=== PATIENT | female | born 1990 | race Caucasian/White ===

== ENCOUNTER 2016-06-24 11:13 | Emergency (ER) | payer OTHER ==
[2016-06-24 11:19] VITALS: BP 125/72; PULSE 82; TEMP 98.2; BMI 24.0
--- NOTE | 2016-06-24 11:26 | PDOC ---
History of Present Illness - General Chief Complaint: Urinary Problem Stated Complaint: Urinary pain, R/O UTI Time Seen by Provider: 06/24/16 11:21 History Source: Patient Exam Limitations: No Limitations - History of Present Illness Initial Comments: 06/24/16 11:26 c/o low back pain, urinary urgency and frequency, with dysuria for 4 days. no vag discharge, LMP now. no fever, no chills or vomiting. Past History - Past Medical History Allergies/Adverse Reactions: Allergies Allergy/AdvReac Type Severity Reaction Status Date / Time amoxicillin [Amoxicillin] Allergy Severe Rash Verified 06/24/16 11:18 Penicillins Allergy Severe Rash Verified 06/24/16 11:18 ceftriaxone Allergy Mild Rash Verified 06/24/16 11:18 Home Medications: Ambulatory Orders Nitrofurantoin Monohyd/M-Cryst [Macrobid -] 100 mg PO BID #14 capsule 06/24/16 Phenazopyridine HCl [Pyridium] 200 mg PO TID PRN #6 tablet 06/24/16 Asthma: No Cancer: No Cardiac Disorders: No Diabetes: No GI Disorders: Yes (GERD) HTN: No Suicide Attempt (Hx): No Seizures: No Thyroid Disease: No - Surgical History Cholecystectomy: Yes - Reproductive History (#): 1 Para: 0 Therapeutic (s) & number: No Spontaneous : 0 - Immunization History Immunization Up to Date: Yes - Psycho/Social/Smoking Cessation Hx Anxiety: No Suicidal Ideation: No Smoking Status: No Smoking History: Never smoked Have you smoked in the past 12 months: No Number of Cigarettes Smoked Daily: 0 Information on smoking cessation initiated: No Hx Alcohol Use: No Drug/Substance Use Hx: No Substance Use Type: None Hx Substance Use Treatment: No Abd/GI Specific PMHX - Complaint Specific PMHX Colitis: No Diverticulitis: No Gall Bladder Disease: No GERD: No Hepatitis: No Irritable Bowel Synd (IBS): No Pancreatitis: No GI Ulcer Disease: No *Physical Exam - Vital Signs Last Vital Signs Temp Pulse Resp BP Pulse Ox 98.2 F 82 18 125/72 100 06/24/16 11:16 06/24/16 11:16 06/24/16 11:16 06/24/16 11:16 06/24/16 11:16 - Physical Exam General Appearance: Yes: Nourished, Appropriately Dressed HEENT: positive: EOMI, MARYANNE, Normal ENT Inspection, TMs Normal, Pharynx Normal Neck: positive: Supple Respiratory/Chest: positive: Lungs Clear, Normal Breath Sounds Cardiovascular: positive: Regular Rhythm, Regular Rate Gastrointestinal/Abdominal: positive: Normal Bowel Sounds, Soft. negative: Tender Musculoskeletal: positive: Normal Inspection. 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 NML intact, Fully Oriented, Alert, Normal Mood/ Affect, Normal Response, Motor Strength 08/11 Medical Decision Making - Medical Decision Making 06/24/16 12:41 cc: urinary urgency, frequency will r/o UTI *DC/Admit/Observation/Transfer Diagnosis at time of Disposition: Urinary tract infection Qualifiers: Urinary tract infection type: acute cystitis Hematuria presence: with hematuria Qualified Code(s): N30.01 - Acute cystitis with hematuria - Discharge Dispostion Disposition: HOME Condition at time of disposition: Good - Prescriptions Prescriptions: Nitrofurantoin Monohyd/M-Cryst [Macrobid -] 100 mg PO BID #14 capsule Phenazopyridine HCl [Pyridium] 200 mg PO TID PRN #6 tablet PRN Reason: urinary pain - Patient Instructions Additional Instructions: drink at least 2 liters of water a day always empty your bladder before and after sexual intercourse take the prescribed antibiotic for 7 days take pyridium as directed for pain
[2016-06-24 12:10] LABS: URINE APPEARANCE SLCLOUDY; URINE BILIRUBIN NEGATIVE (NEGATIVE); URINE COLOR YELLOW; URINE GLUCOSE (UA) NEGATIVE (NEGATIVE); URINE KETONE NEGATIVE (NEGATIVE); URINE NITRITE NEGATIVE (NEGATIVE); URINE UROBILINOGEN NEGATIVE E.U./dl (0.2-1.0)
[2016-06-24 12:12] LABS: URINE BLOOD 3+ (NEGATIVE); URINE LEUK ESTERASE 2+ (NEGATIVE); URINE PROTEIN 1+ (NEGATIVE)
[2016-06-24 12:14] LABS: URINE BACTERIA RARE /hpf (NONE SEEN); URINE MUCUS FEW; URINE RBC 241 /hpf (0-3); URINE WBC 227 /hpf (3-5)
== END 2016-06-24 12:49 | disposition home or self-care (01) ==
LOC: JERFT 11:13
DX: N30.01 Acute cystitis with hematuria (principal)
CPT/HCPCS: 36415; 81003; 81015; 84703; 87086; 87186; 87491; 87591; 99281-25

== ENCOUNTER 2016-07-07 09:23 | Emergency (ER) | payer OTHER ==
[2016-07-07 09:33] VITALS: BP 128/82; PULSE 96; TEMP 98.1; BMI 24.6
--- NOTE | 2016-07-07 09:55 | PDOC ---
History of Present Illness - General Chief Complaint: Migraine Headache Stated Complaint: HEADACHES Time Seen by Provider: 07/07/16 09:35 History Source: Patient Exam Limitations: No Limitations - History of Present Illness Initial Comments: CHIEF COMPLAINT: 25 y/o afebrile female with PMH migraines (diagnosed by Dr. Escobar? - neurologist - after extensive testing) c/o headache since yesterday. HISTORY OF PRESENT ILLNESS: She states her headache is temporal and occipital. She states this feels just like her previous migraines. She admits she was prescribed Imitrex about 1 year ago and hasn't had a migraine since. She no longer has the prescription and hasn't seen her neurologist in 1 year. She admits she is currently sensitive to light and tried taking PO medications last night but vomited them up. She denies f/c, neck pain, changes in vision/ hearing, CP, SOB, abd pain. Vital signs on arrival are notable for pulse of 96. REVIEW OF SYSTEMS: GENERAL/CONSTITUTIONAL: No fever/chills. No weakness. No weight change. HEAD, EYES, EARS, NOSE AND THROAT: No change in vision. No ear pain or discharge. No sore throat. CARDIOVASCULAR: No chest pain or shortness of breath. RESPIRATORY: No cough, wheezing, or hemoptysis. GASTROINTESTINAL: +nausea. No diarrhea, constipation, abd pain. GENITOURINARY: No dysuria, frequency, or change in urination. MUSCULOSKELETAL: No joint or muscle swelling or pain. No neck or back pain. SKIN: No rash or easy bruising. NEUROLOGIC: +headache and photophobia. No vertigo, loss of consciousness, or loss of sensation. PHYSICAL EXAM: GENERAL: The patient is awake, alert, and fully oriented, in no acute distress but uncomfortable appearing. She is sitting in the room with the lights off. HEAD: Normal with no signs of trauma. ENT: Pupils equal, round and reactive to light, extraocular movements intact, sclera anicteric, conjunctiva clear. Neck supple. Photophobia. LUNGS: Clear to auscultation bilaterally. Normal excursion. No respiratory distress or use of accessory muscles. CV: RRR, S1/S2, no MRG. Cap refill < 2 sec. ABDOMEN: Soft, non-distended, non-tender even to deep palpation, no hepatomegaly or splenomegaly, no masses. EXTREMITIES: Normal range of motion, no edema. NEUROLOGICAL: Normal speech, normal gait. CN II-XII grossly intact. PSYCH: Normal mood, normal affect. SKIN: Warm, dry, normal turgor, no rashes or lesions noted. Past History - Past Medical History Allergies/Adverse Reactions: Allergies Allergy/AdvReac Type Severity Reaction Status Date / Time amoxicillin [Amoxicillin] Allergy Severe Rash Verified 07/07/16 09:30 Penicillins Allergy Severe Rash Verified 07/07/16 09:30 ceftriaxone Allergy Mild Rash Verified 07/07/16 09:30 Home Medications: Ambulatory Orders Acetaminophen/Caffeine/Butalb [Fioricet -] 1 tab PO Q4H #20 tablet MDD 6 Asthma: No Cancer: No Cardiac Disorders: No Diabetes: No GI Disorders: Yes (GERD) HTN: No Suicide Attempt (Hx): No Seizures: No Thyroid Disease: No Other medical history: MIGRANES - Surgical History Cholecystectomy: Yes - Reproductive History (#): 1 Para: 0 Therapeutic (s) & number: No Spontaneous : 0 - Immunization History Immunization Up to Date: Yes - Psycho/Social/Smoking Cessation Hx Anxiety: No Suicidal Ideation: No Smoking Status: No Smoking History: Never smoked Have you smoked in the past 12 months: No Number of Cigarettes Smoked Daily: 0 Hx Alcohol Use: No Drug/Substance Use Hx: No Substance Use Type: None Hx Substance Use Treatment: No *Physical Exam - Vital Signs Last Vital Signs Temp Pulse Resp BP Pulse Ox 98.1 F 96 H 17 128/82 95 07/07/16 09:30 07/07/16 09:30 07/07/16 09:30 07/07/16 09:30 07/07/16 09:30 Medical Decision Making - Medical Decision Making A/P: 25 y/o female with hx of migraines here with a migraine headache. Plan is as follows: 1. hcg hcg - negative 2. Iv toradol 3. Iv decadron 4. IV reglan 5. PO Fioricet 6. IV fluids The patient states she feels much better with her migraine down to a 4/10, from a 10/10. She has a f/u appointment with her neurologist on Sunday. Called out an Rx for Fioricet because it would not transmit electronically. Instructed the patient to take motrin as well every 6 hours and drink plenty of fluids. Instructed her to return to the ER with any worsening or concerning symptoms. The patient verbalizes understanding of all instructions, has no further questions and is awaiting discharge. *DC/Admit/Observation/Transfer Diagnosis at time of Disposition: Migraine Qualifiers: Migraine type: unspecified Status migrainosus presence: without status migrainosus Intractability: not intractable Qualified Code(s): G43.909 - Migraine, unspecified, not intractable, without status migrainosus - Discharge Dispostion Disposition: HOME Condition at time of disposition: Improved - Prescriptions Prescriptions: Acetaminophen/Caffeine/Butalb [Fioricet -] 1 tab PO Q4H #20 tablet MDD 6 - Referrals Referrals: Ara Whitney [Primary Care Provider] - Debi Escobar MD [Staff Physician] - (Keep appointment scheduled for Sunday) - Patient Instructions Printed Discharge Instructions: DI for Migraine Additional Instructions: Discharge Instructions: -A prescription was called out to your pharmacy for migraine medication -please also take 600mg of over the counter motrin every 6 hours with the migraine medication -Keep your appointment with your neurologist scheduled for Sunday07/10/16. -Return to the ER with any worsening or concerning symptoms
[2016-07-07] MEDS ORDERED: DEXAMETHASONE SOD PHOSPHATE 10 MG/1 ML VIAL IVPUSH ONE (10:49)
[2016-07-07] MEDS ORDERED: KETOROLAC TROMETHAMINE 30 MG/1 ML VIAL IVPUSH ONE (10:49)
[2016-07-07] MEDS ORDERED: SODIUM CHLORIDE 1,000 ML IV STA (10:49)
[2016-07-07] MEDS ORDERED: METOCLOPRAMIDE HCL INJECTION 10 MG/2 ML VIAL IVPB ONE (10:49)
[2016-07-07] MEDS ORDERED: DEXAMETHASONE SOD PHOSPHATE 10 MG/1 ML VIAL ONE (10:59)
[2016-07-07] MEDS ORDERED: METOCLOPRAMIDE HCL INJECTION 10 MG/2 ML VIAL ONE (10:59)
[2016-07-07] MEDS ORDERED: KETOROLAC TROMETHAMINE 30 MG/1 ML VIAL ONE (11:00)
[2016-07-07] MEDS ORDERED: ACETAMINOPHEN/CAFFEINE/BUTALBITAL 1 TAB PO ONE (12:25)
[2016-07-07] MEDS ORDERED: ACETAMINOPHEN/CAFFEINE/BUTALBITAL 1 TAB ONE (12:27)
== END 2016-07-07 13:04 | disposition home or self-care (01) ==
LOC: JERFT 09:23
PROC: 3E033GC Introduction of Other Therapeutic Substance into Peripheral Vein, Percutaneous Approach (ICD-10-PCS; principal; 2016-07-07)
PROC: 3E0333Z Introduction of Anti-inflammatory into Peripheral Vein, Percutaneous Approach (ICD-10-PCS; 2016-07-07)
PROC: 3E0337Z Introduction of Electrolytic and Water Balance Substance into Peripheral Vein, Percutaneous Approach (ICD-10-PCS; 2016-07-07)
DX: G43.909 Migraine, unspecified, not intractable, without status migrainosus (principal)
CPT/HCPCS: 84703; 96361; 96374; 96375; 99281-25

== ENCOUNTER 2016-09-13 05:19 | Day surgery (SDC) | payer OTHER ==
[2016-09-12 09:18] VITALS: BMI 24.0
[2016-09-13] MEDS ORDERED: MIDAZOLAM HCL 2 MG/2 ML SINGLE DOSE VIAL ONE ×2 (14:04→14:05)
--- NOTE | 2016-09-13 14:31 | HP ---
Past Medical History - Primary Care Physician PCP:: Perfecto Calhoun - Admission Chief Complaint: 26yo P2 with at EGA 12w4d with anomalies admitted for termination History of Present Illness: US showed cystic Hygroma and VSD/AVSD History Source: Patient, Medical Record Limitations to Obtaining History: No Limitations - Past Medical History SHREDDER TENDER: No: Alzheimer's, CVA, Dementia, Migraine, Multiple Sclerosis, Peripheral Neuropathy, Parkinson's, Seizure, Syncope, TIA, Vertigo, Other Cardiovascular: No: AFIB, Aneurysm, Aortic Insufficiency, Aortic Stenosis, CAD, CHF, Deep Vein Thrombosis, HTN, Hyperlipdemia, ID, Mitral Insufficiency, Mitral Stenosis, Murmur, Pulmonary Hypertension, Other Pulmonary: No: Asthma, Bronchitis, Cancer, COPD, O2 Dependent, Pneumonia, Previously Intubated, Pulmonary Embolus, Pulmonary Fibrosis, Sleep Apnea, Other Gastrointestinal: No: Ascites, Cancer, Constipation, Crohn's Disease, Diverticulitis, Diverticulosis, Esophageal Varices, Gastritis, GERD, GI Bleed, Hemorrhoids, Hiatal Hernia, Inflamatory Bowel Disease, Irritable Bowel Disease, Pancreatitis, Peptic Ulcer Disease, Ulcerative Colitis, Other Hepatobiliary: No: Cirrhosis, Cholelithiasis, Cholecystitis, Choledocholithiasis , Hepatitis A, Hepatitis B, Hepatitis C, Other Renal/: No: Renal Failure, Renal Inusuff, BPH, Cancer, Hematuria, Hemodialysis , Neurogenic Bladder, Renal Calculi, UTI, Other Reproductive: No: Ectopic , Endometriosis, Fibroids, PID, Polycystic Ovary Syndrome, Postmenopausal, Other ...: 3 ...Para: 2 ... Weeks Gestation by Dates: 12.4 Heme/Onc: No: Anemia, B12 Deficiency, Bleeding Disorder, Cancer, Current Chemotherapy, Current Radiation Therapy, Hemochromatosis, Hypercoaguable State, Myeloproliferative Synd, Sickle Cell Disease, Sickle Cell Trait, Thrombocytopenia, Other Infectious Disease: No: AIDS, C-Diff, Herpes Zoster, HIV, MRSA, STD's, Tuberculosis, VREF, Other Psych: No: Addictions, Anxiety, Bipolar, Depression, Panic, Psychosis, Schizophrenia, Other Musculoskeletal: No: Bursitis, Chronic low back pain, Hemiparesis, Hemiplegia, Osteoarthritis, Paraplegia, Other Rheumatology: No: Fibromyalgia, Gout, Lupus, Rheumatoid Arthritis, Sarcoidosis, Vasculitis, Other ENT: No: Allergic Rhinitis, Sinusitis, Other Endocrine: No: [place]'s Disease, Solitario's Disease, Diabetes Insipidus, Diabetes Mellitus, Hyperparathyroidism, Hyperthyroidism, Hypothyroidism, Osteopenia, SIADH, Other Dermatology: No: Basal Cell, Cellulitis, Eczema, Melanoma, Psoriasis, Squamous Cell, Other - Past Surgical History Past Surgical History: Yes: Cholecystectomy Hx Myomectomy: No Hx Transabdominal Cerclage: No - Smoking History Smoking history: Never smoked Have you smoked in the past 12 months: No Aproximately how many cigarettes per day: 0 - Alcohol/Substance Use Hx Alcohol Use: No - Social History Usual Living Arrangement: Yes: With Child ADL: Independent History of Recent Travel: No Home Medications - Allergies Allergies/Adverse Reactions: Allergies Allergy/AdvReac Type Severity Reaction Status Date / Time amoxicillin [Amoxicillin] Allergy Severe Rash Verified 09/12/16 09:18 Penicillins Allergy Severe Rash Verified 09/12/16 09:18 ceftriaxone Allergy Mild Rash Verified 09/12/16 09:18 aspirin AdvReac Intermediate Verified 09/12/16 09:19 - Home Medications Home Medications: Ambulatory Orders Acetaminophen/Caffeine/Butalb [Fioricet -] 1 tab PO Q4H #20 tablet MDD 6 Family Disease History - Family Disease History Family History: Denies Review of Systems - Review of Systems Constitutional: reports: No Symptoms Eyes: reports: No Symptoms HENT: reports: No Symptoms Neck: reports: No Symptoms Cardiovascular: reports: No Symptoms Respiratory: reports: No Symptoms Gastrointestinal: reports: No Symptoms Genitourinary: reports: No Symptoms Breasts: reports: No Symptoms Reported Musculoskeletal: reports: No Symptoms Integumentary: reports: No Symptoms Neurological: reports: No Symptoms Endocrine: reports: No Symptoms Hematology/Lymphatic: reports: No Symptoms Psychiatric: reports: No Symptoms Pain Intensity: 0 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 Vital Signs: Vital Signs Temperature 97.8 F 09/13/16 12:41 Pulse Rate 76 09/13/16 12:41 Respiratory Rate 18 09/13/16 12:41 Blood Pressure 110/61 09/13/16 12:41 O2 Sat by Pulse Oximetry (%) 99 09/13/16 12:53 Constitutional: Yes: Well Nourished, No Distress, Calm Eyes: Yes: WNL, Conjunctiva Clear HENT: Yes: WNL, Atraumatic, Normocephalic Neck: Yes: WNL, Supple, Trachea Midline Cardiovascular: Yes: WNL, Regular Rate and Rhythm Respiratory: Yes: WNL, Regular, CTA Bilaterally Gastrointestinal: Yes: WNL, Normal Bowel Sounds, Soft ...Rectal Exam: Yes: WNL Renal/: Yes: WNL Pelvis: Yes: WNL External Genitalia: Yes: Normal Internal Exam Deferred: No Vaginal Exam: Yes: Normal Cervix: Yes: Normal Uterus: Yes: Normal Adnexa: Normal: Left, Right Musculoskeletal: Yes: WNL Extremities: Yes: WNL Integumentary: Yes: WNL Neurological: Yes: WNL, Alert, Oriented ...Motor Strength: WNL Psychiatric: Yes: WNL, Alert, Oriented Imaging - Results Ultrasound: Report Reviewed Assessment/Plan 26yo P2 with at EGA 12w4d with anomalies admitted for termination. Risks, benefits, alternatives of surgery were discussed. Risks of infx, bleeding, scarring, infertility, amenorrhea, perforation, retained POC, etc explained. Pt verbalized her understanding and requested to proceed with surgery
[2016-09-13] MEDS ORDERED: DEXAMETHASONE SOD PHOSPHATE 4 MG/1 ML VIAL ONE (14:34)
[2016-09-13] MEDS ORDERED: CLINDAMYCIN PHOSPHATE 600 MG/4 ML VIAL IVPB ONE (14:41)
--- NOTE | 2016-09-13 15:34 | OP ---
Operative Note - Note: Operative Date: 09/13/16 Pre-Operative Diagnosis: at EGA 12w4d, anomalies, elective termination Operation: US guided Suction, D&C Findings: Anteverted uterus, SIUP, anomaies also confirmed on intraoperative US. No RPOC at end of procedure. Post-Operative Diagnosis: Same as Pre-op Surgeon: Perfecto Calhoun Anesthesiologist/SALES SUPPORT COORDINATOR: Dominic Raphael Anesthesia: General Specimens Removed: POC Estimated Blood Loss (mls): 200 Drains, Volume Out (mls): 0 Blood Volume Replaced (mls): 0 Fluid Volume Replaced (mls): 600 Operative Report Dictated: Yes
[2016-09-13] MEDS ORDERED: ONDANSETRON 4 MG/2 ML VIAL IVPUSH PRN (15:49)
[2016-09-13] MEDS ORDERED: oxyCODONE HCL 5 MG TABLET PO PRN (15:49)
[2016-09-13] MEDS ORDERED: PROMETHAZINE HCL 25 MG/1 ML VIAL IVPUSH PRN (15:49)
[2016-09-13] MEDS ORDERED: KETOROLAC TROMETHAMINE 30 MG/1 ML VIAL IVPUSH ONE (15:49)
[2016-09-13] MEDS ORDERED: LACTATED RINGERS SOLUTION 1,000 ML IV SCH (16:00)
[2016-09-13 16:47] VITALS: TEMP 98.1
[2016-09-13 18:09] VITALS: BP 121/70; PULSE 70
--- NOTE | 2016-09-14 16:09 | PATH ---
Surgical Pathology Report Patient Name: FABIO SARGENT Med. Rec. #: [id number] /Age/Gender: 1990 (Age: 26) / F Account: [id number] Location: [facility] SURGICAL Taken: 09/13/2016 Received: 09/13/2016 Reported: 09/14/2016 Physicians: Perfecto Calhoun M.D. Specimen(s) Received PRODUCTS OF CONCEPTION Clinical History anomalies 12.4 weeks gestation Final Diagnosis PRODUCTS OF CONCEPTION: SOMATIC TISSUE IDENTIFIED. CHORIONIC VILLUS TISSUE PRESENT. FRAGMENTS OF DECIDUA. Comment: Chromosomal studies and microarray studies are pending; results will be reported in an addendum. Electronically Signed Jason Patel M.D. Gross Description Received fresh labeled "products of conception chromosomal studies with microarray" is a 9.5 x 7.0 x 0.9 cm aggregate of sesay-pink soft tissue fragments. Villous tissue and somatic tissue is identified. A territory service representative portion is placed into RPMI solution and sent for chromosomal analysis and microarray studies. Additional territory service representative sections are submitted in 2 cassettes as follows: 1-villous tissue; 2- somatic tissue. /09/13/2016 saudi09/13/2016
--- NOTE | 2016-09-14 18:26 | OP ---
DATE OF OPERATION: 09/13/2016 PREOPERATIVE DIAGNOSIS: with estimated gestational age of 12 weeks 4 days, anomalies with cystic hygroma, ventricular septal defect, elective termination of . POSTOPERATIVE DIAGNOSIS: with estimated gestational age of 12 weeks 4 days, anomalies with cystic hygroma, ventricular septal defect, elective termination of . PROCEDURE: Ultrasound-guided suction dilation and curettage. SURGEON: Perfecto Calhoun MD MOLDING AND TRIM INSTALLER: None. ANESTHESIOLOGIST: Dominic Raphael MD ANESTHESIA: General. COMPLICATIONS: None. ESTIMATED BLOOD LOSS: 200 mL. INTRAVENOUS FLUIDS: 600 mL of crystalloid. PATHOLOGY: Products of conception. tissue sent for chromosomal analysis with micro array. FINDINGS: Examination under anesthesia revealed an anteverted uterus consistent with 12 weeks' gestation. No pelvic or adnexal masses. Suction dilation and curettage performed under real-time ultrasound guidance without complications. No retained products of conception at the end of the procedure. DESCRIPTION OF PROCEDURE: The patient was met preoperatively. Risks, benefits, and alternatives of surgery were discussed in detail. All questions were answered. The patient was then brought to the OR with the IV running. The patient was placed in a supine position. The general anesthesia was achieved without difficulty. The patient was then positioned in a dorsal lithotomy position using adjustable Efrain stirrups. The patient was examined under anesthesia with the findings as described above. She was prepped and draped in the usual sterile fashion. A timeout procedure was conducted per a standard protocol. A sterile speculum was introduced inside the vagina with good visualization of the cervix. The cervix was dilated to accommodate size12 curette. The suction curettage procedure was performed under real-time direct ultrasound guidance without complications. No retained products of conception were noted once the products of conception were evacuated from the uterus. A gentle sharp curettage was performed to assure no retained tissue. Once that was completed, all of the instruments were removed from the patient. Good hemostasis was confirmed. Sponge, lap, instrument counts were correct. The patient was transferred to the recovery room, awake, and in stable condition. Fany [id number]
== END 2016-09-13 17:55 | disposition home or self-care (01) ==
LOC: JASU-SURG 05:19
PROVIDERS: ATTEND Obstetrics & Gynecology
PROC: 10A07ZZ Abortion of Products of Conception, Via Natural or Artificial Opening (ICD-10-PCS; principal; 2016-09-13 14:00)
DX: Z33.2 Encounter for elective termination of pregnancy (principal); Z3A.12 12 weeks gestation of pregnancy
CPT/HCPCS: 76998-TC; 88305-TC; 94760

== ENCOUNTER 2016-10-04 20:50 | Emergency (ER) | payer OTHER ==
[2016-10-04 20:55] VITALS: BP 101/74; PULSE 80; TEMP 97.9; BMI 22.6
--- NOTE | 2016-10-04 21:08 | PDOC ---
History of Present Illness - General Chief Complaint: Migraine Headache Stated Complaint: MIGRAINE EHAD AHCE Time Seen by Provider: 10/04/16 20:51 - History of Present Illness Initial Comments: This 26-year-old woman with a history of migraine headache in the past, presents with 1 week of her usual right-sided migraine headache with 2 days of nausea and vomiting. She also has had photophobia/sensitivity to loud noises as she has in the past with her migraines. Current episode is typical of her usual migraine episodes Her neurologist, Dr. Escobar had prescribed a new medication because the patient had sensation of throat closing with other prescribed medications (patient believes the name of the medications are naratriptan and naproxen). Unfortunately, the patient is still awaiting insurance approval of the new medication. Although the patient has had Toradol in the ER as recently as June of this year without ALLERGIC reaction, she believes the throat closing sensation occurred after this. Past History - Past Medical History Allergies/Adverse Reactions: Allergies Allergy/AdvReac Type Severity Reaction Status Date / Time amoxicillin [Amoxicillin] Allergy Severe Rash Verified 10/04/16 20:51 Penicillins Allergy Severe Rash Verified 10/04/16 20:51 ceftriaxone Allergy Mild Rash Verified 10/04/16 20:51 aspirin AdvReac Intermediate Verified 10/04/16 20:51 Home Medications: Ambulatory Orders NK [No Known Home Medication] 10/04/16 Anemia: No Asthma: No Cancer: No Cardiac Disorders: No CVA: No COPD: No CHF: No Dementia: No Diabetes: No GI Disorders: Yes (GERD) Disorders: No HTN: No Hypercholesterolemia: No Liver Disease: No Suicide Attempt (Hx): No Seizures: No Thyroid Disease: No Other medical history: MIGRAINES - Surgical History Cholecystectomy: Yes - Reproductive History (#): 1 Para: 0 Therapeutic (s) & number: No Spontaneous : 0 - Immunization History Immunization Up to Date: Yes - Psycho/Social/Smoking Cessation Hx Anxiety: No Suicidal Ideation: No Smoking Status: No Smoking History: Never smoked Have you smoked in the past 12 months: No Number of Cigarettes Smoked Daily: 0 Information on smoking cessation initiated: No Hx Alcohol Use: No Drug/Substance Use Hx: No Substance Use Type: None Hx Substance Use Treatment: No Review of Systems - Review of Systems Able to Perform ROS?: Yes Comments:: 12 point review of systems is negative except for what is noted in the history of present illness *Physical Exam - Vital Signs Last Vital Signs Temp Pulse Resp BP Pulse Ox 97.9 F 80 18 101/74 98 10/04/16 20:51 10/04/16 20:51 10/04/16 20:51 10/04/16 20:51 10/04/16 20:51 - Physical Exam Comments: GENERAL: Young adult female, in moderate distress secondary to right-sided migraine headache HEAD: Normal with no signs of trauma. EYES: PERRLA, EOMI, sclera anicteric, conjunctiva clear. ENT: Ears normal, nares patent, oropharynx clear without exudates. Dry mucous membranes. NECK: Normal range of motion, supple without lymphadenopathy, JVD, or masses. LUNGS: Breath sounds equal, clear to auscultation bilaterally. No wheezes, and no crackles. HEART:Regular rate and rhythm, normal S1 and S2 without murmur, rub or gallop. ABDOMEN:.normal bowel sounds No guarding,tenderness or rebound.No masses No distention. EXTREMITIES: Normal range of motion, no edema. No clubbing or cyanosis. No erythema, or tenderness. NEUROLOGICAL: Cranial nerves II through XII grossly intact. Normal speech. No focal neurological deficits. MUSCULOSKELETAL: Back non-tender to palpation, no CVA tenderness SKIN: Warm, Dry, normal turgor, no rashes or lesions noted. Progress Note - Progress Note Progress Note: This 26-year-old woman with a history of chronic migraine presents with episode of usual symptoms for the last week, complicated by nausea and vomiting over the last 48 hours. On exam, the patient has dry mucous membranes, but there is no evidence of acute neuro deficits or other new findings on exam. Of note in recent history, is development of "throat closing" symptoms after medications introduce by Dr. Escobar. Patient believes that one of the medications was naproxen. Because of this, NSAIDs will be avoided and Toradol will not be used now (patient had good results in previous ER visits with use of IV Toradol for migraine episodes) Metoclopramide/diphenhydramine IV combination will be administered Medical Decision Making - Medical Decision Making 10/04/16 23:53 Patient feels markedly improved after 1 L normal saline and 4 mg IV Zofran. This was followed by 10 mg Reglan IV and Benadryl 25 mg IV. Patient has follow-up appointment scheduled with Dr. Escobar tomorrow. *DC/Admit/Observation/Transfer Diagnosis at time of Disposition: Migraine Qualifiers: Migraine type: without aura Status migrainosus presence: without status migrainosus Intractability: not intractable Qualified Code(s): G43.009 - Migraine without aura, not intractable, without status migrainosus - Discharge Dispostion Disposition: HOME Condition at time of disposition: Stable - Referrals Referrals: Debi Escobar MD [Staff Physician] - - Patient Instructions Printed Discharge Instructions: Migraine -- Adult Additional Instructions: followup with Dr Escobar tomorrow as scheduled Return to ER as needed
[2016-10-04] MEDS ORDERED: ONDANSETRON 4 MG/2 ML VIAL IVPUSH ONE (22:23)
[2016-10-04] MEDS ORDERED: SODIUM CHLORIDE 1,000 ML IV STA (22:23)
[2016-10-04] MEDS ORDERED: ONDANSETRON 4 MG/2 ML VIAL ONE ×2 (22:27→22:31)
[2016-10-04] MEDS ORDERED: METOCLOPRAMIDE HCL INJECTION 10 MG/2 ML VIAL IVPB ONE (22:55)
== END 2016-10-04 23:59 | disposition home or self-care (01) ==
LOC: FER 20:50
PROC: 3E033GC Introduction of Other Therapeutic Substance into Peripheral Vein, Percutaneous Approach (ICD-10-PCS; principal; 2016-10-04)
PROC: 3E0337Z Introduction of Electrolytic and Water Balance Substance into Peripheral Vein, Percutaneous Approach (ICD-10-PCS; 2016-10-04)
DX: G43.009 Migraine without aura, not intractable, without status migrainosus (principal)
CPT/HCPCS: 84703; 96361; 96374; 96375; 99282-25

== ENCOUNTER 2017-01-06 08:24 | Emergency (ER) | payer OTHER ==
[2017-01-06 08:28] VITALS: BP 106/66; PULSE 81; TEMP 97.7; BMI 21.9
--- NOTE | 2017-01-06 08:37 | PDOC ---
History of Present Illness - General Chief Complaint: Urinary Problem Stated Complaint: PAIN ON URINATION Time Seen by Provider: 01/06/17 08:27 - History of Present Illness Initial Comments: 01/06/17 08:32 26-year-old female denies past medical presents with 3 days of dysuria and dull suprapubic pain with 1 day of radiation up to the right flank. Patient reports this feels like her previous UTIs. She denies any fevers or chills. Denies any nausea or vomiting. Denies vaginal discharge or bleeding. Feels well otherwise. Denies hx resistant UTIs. Denies chest pain, shortness of breath Denies focal weakness or numbness. Denies headaches Denies rashes. PMD: Dr. Ara Whitney Past History - Past Medical History Allergies/Adverse Reactions: Allergies Allergy/AdvReac Type Severity Reaction Status Date / Time amoxicillin [Amoxicillin] Allergy Severe Rash Verified 01/06/17 08:25 Penicillins Allergy Severe Rash Verified 01/06/17 08:25 ceftriaxone Allergy Mild Rash Verified 01/06/17 08:25 aspirin AdvReac Intermediate Verified 01/06/17 08:25 Home Medications: Ambulatory Orders Nitrofurantoin Monohyd/M-Cryst [Macrobid -] 100 mg PO BID #14 capsule 01/06/17 Phenazopyridine HCl [Pyridium] 200 mg PO TID PRN #6 tablet 01/06/17 Anemia: No Asthma: No Cancer: No Cardiac Disorders: No CVA: No COPD: No CHF: No Dementia: No Diabetes: No GI Disorders: Yes (GERD) Disorders: No HTN: No Hypercholesterolemia: No Liver Disease: No Seizures: No Thyroid Disease: No - Surgical History Cholecystectomy: Yes - Reproductive History (#): 1 Para: 0 Therapeutic (s) & number: No Spontaneous : 0 - Immunization History Immunization Up to Date: Yes - Suicide/Smoking/Psychosocial Hx Smoking Status: No Smoking History: Never smoked Have you smoked in the past 12 months: No Number of Cigarettes Smoked Daily: 0 Information on smoking cessation initiated: No Hx Alcohol Use: No Drug/Substance Use Hx: No Substance Use Type: None Hx Substance Use Treatment: No Abd/GI Specific PMHX - Complaint Specific PMHX Colitis: No Diverticulitis: No Gall Bladder Disease: No GERD: No Hepatitis: No Irritable Bowel Synd (IBS): No Pancreatitis: No GI Ulcer Disease: No Review of Systems - Review of Systems Comments:: 01/06/17 08:36 GENERAL/CONSTITUTIONAL: No fever or chills. No weakness. HEAD, EYES, EARS, NOSE AND THROAT: No change in vision. No ear pain or discharge. No sore throat. GASTROINTESTINAL: No nausea, vomiting, diarrhea or constipation. GENITOURINARY: +dysuria and frequency. +R flank pain CARDIOVASCULAR: No chest pain or shortness of breath. RESPIRATORY: No cough, wheezing, or hemoptysis. MUSCULOSKELETAL: No joint or muscle swelling or pain. No neck or back pain. SKIN: No rash NEUROLOGIC: No headache, vertigo, loss of consciousness, or change in strength/ sensation. ENDOCRINE: No increased thirst. No abnormal weight change. HEMATOLOGIC/LYMPHATIC: No anemia, easy bleeding, or history of blood clots. ALLERGIC/IMMUNOLOGIC: No hives or skin allergy. *Physical Exam - Vital Signs Last Vital Signs Temp Pulse Resp BP Pulse Ox 97.7 F 81 18 106/66 98 01/06/17 08:25 01/06/17 08:25 01/06/17 08:25 01/06/17 08:25 01/06/17 08:25 - Physical Exam Comments: 01/06/17 08:37 GENERAL: Awake, alert, and fully oriented, in no acute distress HEAD: No signs of trauma EYES: PERRLA, EOMI, sclera anicteric, conjunctiva clear ENT: Auricles normal inspection, hearing grossly normal, nares patent, oropharynx clear without exudates. Moist mucosa NECK: Normal ROM, supple, no lymphadenopathy, JVD, or masses LUNGS: Breath sounds equal, clear to auscultation bilaterally. No wheezes, and no crackles HEART: Regular rate and rhythm, normal S1 and S2, no murmurs, rubs or gallops ABDOMEN: Soft, +suprapubic ttp, normoactive bowel sounds. No guarding, no rebound. No masses. No CVAT EXTREMITIES: Normal range of motion, no edema. No clubbing or cyanosis. No cords, erythema, or tenderness NEUROLOGICAL: Normal speech, cranial nerves intact, negative pronator drift, 5/ 5 strength in all 4 extremities, normal sensation to light touch in all 4 extremities, normal cerebellar exam, normal gait, normal reflexes and tone SKIN: Warm, Dry, normal turgor, no rashes or lesions noted. Medical Decision Making - Medical Decision Making 01/06/17 08:38 26-year-old female with no significant past medical history presents with dysuria, suprapubic pain radiating up to the right flank. Vitals unremarkable. Exam remarkable only for suprapubic tenderness to palpation with no CVA tenderness. Likely UTI. Pyelo on differential as well, however pt with no CVAT and well appearing. Kidney stone also on differential but unlikely as pt reports mild, dull pain, mostly over suprapubic area. -UA -UPT -reassess 01/06/17 09:21 UA + for UTI. Will DC with macrobid and pyridium. I discussed the physical exam findings, ancillary test results and final diagnoses with the patient. I answered all of the patient's questions. The patient was satisfied with the care received and felt comfortable with the discharge plan and treatment plan. The patient will call their primary care physician within 24 hours to arrange follow-up and will return to the Emergency Department with any new, persistent or worsening symptoms. *DC/Admit/Observation/Transfer Diagnosis at time of Disposition: Urinary tract infection - Discharge Dispostion Disposition: HOME Condition at time of disposition: Stable Admit: No - Patient Instructions Printed Discharge Instructions: Urinary Tract Infection Additional Instructions: Please see Dr. Whitney within 1 week. Return to the emergency department immediately for any new or concerning symptoms or if your symptoms get worse. Thank you for coming to the Emergency Department today for your care. It was a pleasure to see you today. Please note that your evaluation is INCOMPLETE until you follow-up with your doctor. - Attestations Physician Attestion: 01/06/17 09:23 I, Dr. Snehal Ahn MD, attest that this document has been prepared under my direction and personally reviewed by me in its entirety. I further attest, that it accurately reflects all work, treatment, procedures and medical decision -making performed by me.
[2017-01-06 08:40] LABS: PH,URINE 5.5 (4.5-8); URINE BILIRUBIN Negative (NEGATIVE); URINE GLUCOSE (UA) Negative (NEGATIVE); URINE KETONE Negative (NEGATIVE); URINE NITRITE Negative (NEGATIVE); URINE UROBILINOGEN 0.2 (0.2-1.0)
[2017-01-06 08:41] LABS: URINE APPEARANCE CLOUDY; URINE BLOOD 3+ (NEGATIVE); URINE COLOR YELLOW; URINE LEUK ESTERASE 3+ (NEGATIVE); URINE PROTEIN 1+ (NEGATIVE)
[2017-01-06 08:56] LABS: URINE RBC 15-20 /hpf (0-3)
[2017-01-06 08:57] LABS: URINE BACTERIA MODERATE /hpf (NEGATIVE); URINE WBC MANY (3-5)
== END 2017-01-06 09:28 | disposition home or self-care (01) ==
LOC: FER 08:24
DX: N39.0 Urinary tract infection, site not specified (principal); K21.9 Gastro-esophageal reflux disease without esophagitis
CPT/HCPCS: 81003; 81015; 84703; 87086; 99281-25

== ENCOUNTER 2017-03-28 09:26 | Emergency (ER) | payer OTHER ==
[2017-03-28 09:29] VITALS: BP 118/84; PULSE 82; TEMP 98.4; BMI 22.8
[2017-03-28] MEDS ORDERED: KETOROLAC TROMETHAMINE 30 MG/1 ML VIAL IVPUSH ONE (10:21)
[2017-03-28] MEDS ORDERED: METOCLOPRAMIDE HCL INJECTION 10 MG/2 ML VIAL IVPB ONE (10:21)
[2017-03-28] MEDS ORDERED: SODIUM CHLORIDE 1,000 ML IV STA (10:21)
--- NOTE | 2017-03-28 10:27 | PDOC ---
History of Present Illness - General Chief Complaint: Migraine Headache Stated Complaint: MIGRAINES Time Seen by Provider: 03/28/17 09:54 History Source: Patient Exam Limitations: No Limitations - History of Present Illness Initial Comments: 03/28/17 10:24 26-year-old female presents to the emergency room for evaluation of migraine which she states is normal presentation but was not relieved by nadolol yesterday and since she was unable to get ahold of her neurologist Dr. Escobar and had nausea this morning she decided come to the ER. Patient denies visual changes, fever, chills, weakness, dizziness, abdominal pain, or recent illness. Patient denies any other complaints. Timing/Duration: reports: other (2 days) Severity: Yes: mild Associated Symptoms: reports: nausea/vomiting, other (headache) Past History - Past Medical History Allergies/Adverse Reactions: Allergies Allergy/AdvReac Type Severity Reaction Status Date / Time amoxicillin [Amoxicillin] Allergy Severe Rash Verified 03/28/17 09:29 Penicillins Allergy Severe Rash Verified 03/28/17 09:29 ceftriaxone Allergy Mild Rash Verified 03/28/17 09:29 aspirin AdvReac Intermediate Verified 03/28/17 09:29 Home Medications: Ambulatory Orders NK [No Known Home Medication] 03/28/17 Anemia: No Asthma: No Cancer: No Cardiac Disorders: No CVA: No COPD: No CHF: No DVT: No Dementia: No Diabetes: No GI Disorders: Yes (GERD) Disorders: No HTN: No Hypercholesterolemia: No Liver Disease: No Seizures: No Thyroid Disease: No Other medical history: MIGRAINES - Surgical History Cholecystectomy: Yes - Reproductive History LMP Normal: Yes Is Patient Now?: No (#): 1 Para: 0 Therapeutic (s) & number: No Spontaneous : 0 - Immunization History Immunization Up to Date: Yes - Suicide/Smoking/Psychosocial Hx Smoking Status: No Smoking History: Never smoked Have you smoked in the past 12 months: No Number of Cigarettes Smoked Daily: 0 Information on smoking cessation initiated: No Hx Alcohol Use: No Drug/Substance Use Hx: No Substance Use Type: None Hx Substance Use Treatment: No Patient Lives Alone: No Lives with/in: parents Review of Systems - Review of Systems Able to Perform ROS?: Yes Constitutional: No: Symptoms Reported HEENTM: No: Symptoms Reported Respiratory: No: Symptoms reported Cardiac (ROS): No: Symptoms Reported ABD/GI: Yes: Nausea : No: Symptoms Reported Musculoskeletal: No: Symptoms Reported Neurological: Yes: Other (migraine) Endocrine: No: Symptoms Reported Hematologic/Lymphatic: No: Symptoms Reported *Physical Exam - Vital Signs Last Vital Signs Temp Pulse Resp BP Pulse Ox 98.4 F 82 20 118/84 98 03/28/17 09:26 03/28/17 09:26 03/28/17 09:26 03/28/17 09:26 03/28/17 09:26 - Physical Exam General Appearance: Yes: Nourished, Appropriately Dressed. No: Apparent Distress HEENT: positive: EOMI, MARYANNE, Pharynx Normal Neck: positive: Normal Thyroid Respiratory/Chest: positive: Lungs Clear. negative: Respiratory Distress, Accessory Muscle Use Cardiovascular: positive: Regular Rhythm, Regular Rate. negative: Murmur Gastrointestinal/Abdominal: positive: Soft. negative: Tenderness Extremity: positive: Normal Capillary Refill Integumentary: positive: Normal Color, Warm, Moist Neurologic: positive: Motor Strength 5/5 (ambulatory) Medical Decision Making - Medical Decision Making 03/28/17 10:33 Patient here for complaints of continual headache despite taking her nadolol as prescribed by her neurologist. Patient states would've taken a dose today but was nauseous and felt she would not be able to tolerate. Patient states normally responds well with IV fluids and something for nausea and pain meds. Patient will have urine done prior to Toradol. 03/28/17 10:51 Laboratory Tests 03/28/17 10:25 Urine HCG, Qual Negative *DC/Admit/Observation/Transfer Diagnosis at time of Disposition: Migraine Qualifiers: Migraine type: unspecified Intractability: not intractable - Discharge Dispostion Disposition: HOME Condition at time of disposition: Improved - Referrals Referrals: Ara Whitney [Primary Care Provider] - - Patient Instructions Printed Discharge Instructions: DI for Migraine Additional Instructions: Please take the nadolol tonight after eating a meal to avoid rebound migraine. Also notify your neurologist as of today's visit. Return to ED if symptoms worsen or return - Post Discharge Activity
[2017-03-28] MEDS ORDERED: METOCLOPRAMIDE HCL INJECTION 10 MG/2 ML VIAL ONE (10:37)
[2017-03-28] MEDS ORDERED: KETOROLAC TROMETHAMINE 30 MG/1 ML VIAL ONE (10:37)
== END 2017-03-28 11:53 | disposition home or self-care (01) ==
LOC: JER 09:26 → JERFT 09:26
PROC: 3E0333Z Introduction of Anti-inflammatory into Peripheral Vein, Percutaneous Approach (ICD-10-PCS; principal; 2017-03-28)
PROC: 3E033GC Introduction of Other Therapeutic Substance into Peripheral Vein, Percutaneous Approach (ICD-10-PCS; 2017-03-28)
PROC: 3E0337Z Introduction of Electrolytic and Water Balance Substance into Peripheral Vein, Percutaneous Approach (ICD-10-PCS; 2017-03-28)
DX: G43.909 Migraine, unspecified, not intractable, without status migrainosus (principal); K21.9 Gastro-esophageal reflux disease without esophagitis
CPT/HCPCS: 84703; 99281-25

== ENCOUNTER 2017-06-11 04:19 | Emergency (ER) | payer OTHER ==
--- NOTE | 2017-06-11 04:41 | PDOC ---
Attending Attestation - Resident Resident Name: Jermain Ruizson - ED Attending Attestation I have performed the following: I have examined & evaluated the patient, The case was reviewed & discussed with the resident, I agree w/resident's findings & plan - HPI HPI: 06/11/17 06:39 Pt comes with migraines ongoing for 1 week, she is using her migraine meds. - Physicial Exam PE: 06/11/17 06:39 Agree with resident exam - Medical Decision Making 06/11/17 06:40 Pt has a UTI and she will be prescibed with macrobid. Pt is feeling better in the ER with compazine, zofran, benadryl. 06/11/17 06:53 Pt will bi signed out the day team. They will administer a 2nd L of NSS, and more analgesics: fioricet and reeval. I snet macrobid rx to her pharmacy
--- NOTE | 2017-06-11 04:42 | PDOC ---
History of Present Illness - General Chief Complaint: Migraine Headache Stated Complaint: MIGRAINE,VOMITING Time Seen by Provider: 06/11/17 04:25 - History of Present Illness Initial Comments: 06/11/17 04:42 26 yo F with h/o migraines who presents with BL BANERJEE. Patient reports worsening bitemporal throbbing BANERJEE, with post neck radiation beginning 06/10/17 at 0900, with no improvement. Endorses photphobia, phonophiobia, nausea with non biliary , non bloody emesis, decreased PO intake, and scintillating scotomas. Denies aura or sensory disturbance prior to BANERJEE onset. Denies head trauma. Symptoms worse with movement. Denies CP, SOB, F/C, abdominal pain, diarrhea, constipation , lightheadedness, vertigo, weakness, sensory changes. Migraines for 15 + years. Neruology Dr. Tobar. Recently started on Topimax, triptan 40 mg, and magnesium 06/08/17 following severe BANERJEE this past Sunday. Has attempted multiple medication management in past. MRI brain 05/11/2017 unremarkable. Past History - Past Medical History Allergies/Adverse Reactions: Allergies Allergy/AdvReac Type Severity Reaction Status Date / Time amoxicillin [Amoxicillin] Allergy Severe Rash Verified 06/11/17 04:23 Penicillins Allergy Severe Rash Verified 06/11/17 04:23 ceftriaxone Allergy Mild Rash Verified 06/11/17 04:23 aspirin AdvReac Intermediate Verified 06/11/17 04:23 Home Medications: Ambulatory Orders Nitrofurantoin Monohyd/M-Cryst [Macrobid -] 100 mg PO BID #14 capsule 06/11/17 Anemia: No Asthma: No Cancer: No Cardiac Disorders: No CVA: No COPD: No CHF: No DVT: No Dementia: No Diabetes: No GI Disorders: Yes (GERD) Disorders: No HTN: No Hypercholesterolemia: No Liver Disease: No Seizures: No Thyroid Disease: No - Surgical History Cholecystectomy: Yes - Reproductive History (#): 1 Para: 0 Therapeutic (s) & number: No Spontaneous : 0 - Immunization History Immunization Up to Date: Yes - Suicide/Smoking/Psychosocial Hx Smoking Status: No Smoking History: Never smoked Have you smoked in the past 12 months: No Number of Cigarettes Smoked Daily: 0 Hx Alcohol Use: No Drug/Substance Use Hx: No Substance Use Type: None Hx Substance Use Treatment: No Review of Systems - Review of Systems Comments:: 06/11/17 04:41 GENERAL/CONSTITUTIONAL: No fever or chills. No weakness. HEAD, EYES, EARS, NOSE AND THROAT: No change in vision. No ear pain or discharge. No sore throat.- CARDIOVASCULAR: No chest pain or shortness of breath RESPIRATORY: No cough, wheezing, or hemoptysis. GASTROINTESTINAL: + nausea, and vomiting. No diarrhea or constipation. GENITOURINARY: No dysuria, frequency, or change in urination. MUSCULOSKELETAL: No joint or muscle swelling or pain. No neck or back pain. SKIN: No rash NEUROLOGIC: + Headache. No vertigo, loss of consciousness, or change in strength /sensation. ENDOCRINE: No increased thirst. No abnormal weight change HEMATOLOGIC/LYMPHATIC: No anemia, easy bleeding, or history of blood clots. ALLERGIC/IMMUNOLOGIC: No hives or skin allergy. *Physical Exam - Vital Signs Last Vital Signs Temp Pulse Resp BP Pulse Ox 98.1 F 93 H 18 110/74 97 06/11/17 04:33 06/11/17 04:33 06/11/17 04:33 06/11/17 04:33 06/11/17 04:33 - Physical Exam Comments: 06/11/17 04:42 GENERAL: Awake, alert, and fully oriented, in no acute distress HEAD: No signs of trauma, normocephalic, atraumatic EYES: PERRLA, EOMI, sclera anicteric, conjunctiva clear ENT: Hearing grossly normal, nares patent, oropharynx clear without exudates. Moist mucosa NECK: Normal ROM, supple, no lymphadenopathy, JVD, or masses LUNGS: No distress, speaks full sentences, clear to auscultation bilaterally HEART: Regular rate and rhythm, normal S1 and S2, no murmurs, rubs or gallops, peripheral pulses normal and equal bilaterally. EXTREMITIES : Normal inspection, Normal range of motion, no edema. No clubbing or cyanosis. NEUROLOGICAL: Cranial nerves II through XII grossly intact. Normal speech, normal gait, no focal sensorimotor deficits. SKIN: Warm, Dry, normal turgor, no rashes or lesions noted ED Treatment Course - LABORATORY CBC & Chemistry Diagram: 06/11/17 03:51 06/11/17 03:51 Medical Decision Making - Medical Decision Making 06/11/17 04:59 26 yo F with h/o migraines who presents with worsening bitemporal throbbing BANERJEE, with post neck radiation beginning 06/10/17 at 0900, with no improvement, aggravated with movement. Asx. w/ photphobia, phonophiobia, nausea with non biliary, non bloody emesis, decreased PO intake, and scintillating scotomas. Denies aura,head trauma. Denies CP, SOB, F/C, abdominal pain, diarrhea, constipation, lightheadedness, vertigo, weakness, sensory changes. On Topimax, Triptan 40 mg, and Magnesium. MRI brain 05/11/2017 unremarkable. Physical exam with absent neuro deficits. HDS. Patient presentation most likely 2/2 migraine without aura vs. tension type BANERJEE. Will evaluate for underlying metabolic, electrolyte disturbance. Low suspicion of pseudotumor cerebri or space occupying lesion. BANERJEE stable, vision unchanged, and absent neuro deficits. ED Course: CBC, CMP, Mg, BHCG UA Compazine 10 mg IV, Zofran 4 mg IV, Diphendhyramine 50 mg, NS 1 L , Pepcid 06/11/17 06:13 CBC, CMP: Unremarkable BHCG: Neg Patient with cont'd BANERJEE. Unchanged Fiorocet, Toradol, NS 1 L 06/11/17 07:03 Patient signed out to Dr. Skaggs. Will reassess. *DC/Admit/Observation/Transfer Diagnosis at time of Disposition: Migraine without aura - Discharge Dispostion Condition at time of disposition: Stable Admit: No - Prescriptions Prescriptions: Nitrofurantoin Monohyd/M-Cryst [Macrobid -] 100 mg PO BID #14 capsule - Referrals - Patient Instructions Printed Discharge Instructions: Migraine -- Adult Additional Instructions: Please return to the emergency department with any new or worsening symptoms or concerns. Please follow up with your primary care physician within 72 hours. Please follow up with your neurologist within one week. - Post Discharge Activity - Attestations Physician Attestion: 06/11/17 04:42 I attest to the information provided in this note.
[2017-06-11] MEDS ORDERED: PROCHLORPERAZINE INJECTION 10 MG/2 ML VIAL IVPB ONE (04:53)
[2017-06-11] MEDS ORDERED: ONDANSETRON 4 MG/2 ML VIAL IVPUSH ONE (04:53)
[2017-06-11 04:54] VITALS: BMI 22.2
[2017-06-11] MEDS ORDERED: SODIUM CHLORIDE 1,000 ML IV STA ×2 (04:54→06:41)
[2017-06-11] MEDS ORDERED: FAMOTIDINE IV 20 MG/12 ML VIAL IVPUSH ONE (04:57)
[2017-06-11] MEDS ORDERED: ONDANSETRON 4 MG/2 ML VIAL ONE (05:05)
[2017-06-11] MEDS ORDERED: PROCHLORPERAZINE INJECTION 10 MG/2 ML VIAL ONE (05:05)
[2017-06-11 05:22] LABS: BASO % 0.2 % (0-2.0); EOS % 0.3 % (0-4.5); HEMOGLOBIN 13.6 GM/dL (10.7-15.3); LYMPH % 13.3 % (8-40); MCH 29.3 pg (25.7-33.7); MEAN CELL VOLUME 86.2 fl (80-96); MEAN PLT VOLUME 10.4 fl (7.5-11.1); MONO % 6.3 % (3.8-10.2); NEUT % 79.9 % (42.8-82.8); PLATELET COUNT 124 K/MM3 (134-434); RBC 4.64 M/mm3 (3.60-5.2); RDW 13.5 % (11.6-15.6)
[2017-06-11 05:53] LABS: URINE APPEARANCE CLOUDY; URINE BILIRUBIN NEGATIVE (NEGATIVE); URINE BLOOD NEGATIVE (NEGATIVE); URINE COLOR YELLOW; URINE GLUCOSE (UA) NEGATIVE (NEGATIVE); URINE KETONE 2+ (NEGATIVE); URINE LEUK ESTERASE TRACE (NEGATIVE); URINE NITRITE NEGATIVE (NEGATIVE); URINE PROTEIN NEGATIVE (NEGATIVE)
[2017-06-11 05:56] LABS: ALBUMIN 4.1 g/dl (3.4-5.0); ANION GAP 8 (8-16); BILIRUBIN,TOTAL 0.7 mg/dL (0.2-1.0); BLOOD UREA NITROGEN 11 mg/dL (7-18); CHLORIDE 104 mmol/L (98-107); CO2 25 mmol/L (21-32); CREATININE 0.7 mg/dL (0.55-1.02); GLUCOSE,RANDOM 87 mg/dL (74-106); POTASSIUM 3.5 mmol/L (3.5-5.1); SGOT/AST 17 U/L (15-37); SGPT/ALT 22 U/L (12-78); SODIUM 137 mmol/L (136-145); TOT PROT 7.4 g/dl (6.4-8.2)
[2017-06-11 05:57] LABS: ALK PHOS 66 U/L (45-117)
[2017-06-11 05:57] LABS: HCG,QUALITATIVE URINE NEGATIVE
[2017-06-11 06:04] LABS: EPI CELLS MODERATE /HPF (FEW); URINE BACTERIA FEW /hpf (NONE SEEN); URINE MUCUS MANY
[2017-06-11] MEDS ORDERED: ACETAMINOPHEN/CAFFEINE/BUTALBITAL 1 TAB PO ONE (06:31)
[2017-06-11] MEDS ORDERED: KETOROLAC TROMETHAMINE 30 MG/1 ML VIAL IVPUSH ONE (06:31)
[2017-06-11] MEDS ORDERED: NITROFURANTOIN MACROCRYSTAL 50 MG CAPSULE (FP) PO SCH (06:45)
[2017-06-11] MEDS ORDERED: ACETAMINOPHEN/CAFFEINE/BUTALBITAL 1 TAB ONE (06:52)
[2017-06-11] MEDS ORDERED: NITROFURANTOIN MACROCRYSTAL 50 MG CAPSULE (FP) ONE (06:57)
[2017-06-11] MEDS ORDERED: KETOROLAC TROMETHAMINE 30 MG/1 ML VIAL ONE (06:57)
--- NOTE | 2017-06-11 08:09 | PDOC ---
*Physical Exam - Vital Signs Last Vital Signs Temp Pulse Resp BP Pulse Ox 98.2 F 86 18 116/75 97 06/11/17 07:11 06/11/17 07:11 06/11/17 07:11 06/11/17 07:11 06/11/17 07:11 - Physical Exam Comments: 06/11/17 08:07 GENERAL: Awake, alert, and fully oriented, in no acute distress HEAD: No signs of trauma, normocephalic, atraumatic EYES: PERRLA, EOMI, sclera anicteric, conjunctiva clear LUNGS: No distress, speaks full sentences, clear to auscultation bilaterally HEART: Regular rate and rhythm, normal S1 and S2, no murmurs, rubs or gallops, peripheral pulses normal and equal bilaterally. NEUROLOGICAL: Cranial nerves II through XII grossly intact. Normal speech, no focal sensorimotor deficits SKIN: Warm, Dry, normal turgor, no rashes or lesions noted. ED Treatment Course - LABORATORY CBC & Chemistry Diagram: 06/11/17 03:51 06/11/17 03:51 - ADDITIONAL ORDERS Additional order review: Laboratory Results 06/11/17 06/11/17 06/11/17 04:54 03:51 03:51 Sodium 137 Potassium 3.5 Chloride 104 Carbon Dioxide 25 Anion Gap 8 BUN 11 Creatinine 0.7 Creat Clearance w eGFR > 60 Random Glucose 87 Calcium 8.0 L Magnesium 2.1 Total Bilirubin 0.7 D AST 17 ALT 22 Alkaline Phosphatase 66 Total Protein 7.4 Albumin 4.1 Urine Color Yellow Urine Appearance Cloudy Urine pH 5.0 D Ur Specific [place] 1.023 Urine Protein Negative Urine Glucose (UA) Negative Urine Ketones 2+ H Urine Blood Negative Urine Nitrite Negative Urine Bilirubin Negative Urine Urobilinogen 2.0 H Ur Leukocyte Esterase Trace Urine WBC (Auto) 6 Urine RBC (Auto) 3 Ur Epithelial Cells Moderate Urine Bacteria Few Urine Mucus Many Urine HCG, Qual Negative 06/11/17 03:51 RBC 4.64 MCV 86.2 MCHC 34.0 RDW 13.5 MPV 10.4 Neutrophils % 79.9 D Lymphocytes % 13.3 D Monocytes % 6.3 Eosinophils % 0.3 Basophils % 0.2 - Medications Given in the ED: ED Medications Discontinued Medications Generic Name Dose Route Start Last Admin Trade Name Freq PRN Reason Stop Dose Admin Acetaminophen/Butalbital/Caffeine 1 tablet 03/05/18 06:31 06/11/17 06:58 Fioricet - PO 06/11/17 06:32 1 tablet ONCE ONE Administration Diphenhydramine HCl 25 mg 06/11/17 04:53 06/11/17 05:16 Benadryl Injection - IVPUSH 06/11/17 04:54 25 mg ONCE ONE Administration Sodium Chloride 1,000 mls @ 1,000 mls/hr 06/11/17 04:54 06/11/17 05:16 Normal Saline - IV 06/11/17 05:53 1,000 mls/hr ASDIR STA Administration Famotidine 20 mg in 12 mls @ 144 mls/hr 06/11/17 04:57 06/11/17 05:17 Pepcid 20 Mg/12 Ml Push IVPUSH 06/11/17 05:01 144 mls/hr ONCE ONE Administration Sodium Chloride 1,000 mls @ 1,000 mls/hr 06/11/17 06:41 06/11/17 06:58 Normal Saline - IV 06/11/17 07:40 1,000 mls/hr ASDIR STA Administration Ketorolac Tromethamine 30 mg 06/11/17 06:31 06/11/17 06:58 Toradol Injection - IVPUSH 06/11/17 06:32 30 mg ONCE ONE Administration Ondansetron HCl 4 mg 06/11/17 04:53 06/11/17 05:16 Zofran Injection IVPUSH 06/11/17 04:54 4 mg ONCE ONE Administration Prochlorperazine Edisylate 10 mg 06/11/17 04:53 06/11/17 05:16 Compazine Injection - IVPB 06/11/17 04:54 10 mg ONCE ONE Administration Medical Decision Making - Medical Decision Making 06/11/17 08:[address] Ruiz here today with headache. Vital signs stable and normal. Lab work unremarkable other than UA showing UTI. Will send home with macrobid. Patient reports feeling better and is asking to go home. Will discharge with return precautions. *DC/Admit/Observation/Transfer Diagnosis at time of Disposition: Migraine without aura - Discharge Dispostion Disposition: HOME Condition at time of disposition: Good - Prescriptions Prescriptions: Nitrofurantoin Monohyd/M-Cryst [Macrobid -] 100 mg PO BID #14 capsule - Referrals - Patient Instructions Printed Discharge Instructions: Migraine -- Adult Additional Instructions: Please return to the emergency department with any new or worsening symptoms or concerns. Please follow up with your primary care physician within 72 hours. Please follow up with your neurologist within one week. - Post Discharge Activity Forms/Work/School Notes: Back to Work
[2017-06-11 08:41] VITALS: BP 105/65; PULSE 87; TEMP 98
== END 2017-06-11 08:39 | disposition home or self-care (01) ==
LOC: JER 04:19
PROC: 3E033GC Introduction of Other Therapeutic Substance into Peripheral Vein, Percutaneous Approach (ICD-10-PCS; principal; 2017-06-11)
PROC: 3E0337Z Introduction of Electrolytic and Water Balance Substance into Peripheral Vein, Percutaneous Approach (ICD-10-PCS; 2017-06-11)
DX: G43.909 Migraine, unspecified, not intractable, without status migrainosus (principal); K21.9 Gastro-esophageal reflux disease without esophagitis; Z88.0 Allergy status to penicillin; Z88.1 Allergy status to other antibiotic agents; Z88.6 Allergy status to analgesic agent
CPT/HCPCS: 36415; 80053; 81003; 81015; 83735; 84703; 85025; 99282-25

== ENCOUNTER 2018-11-25 15:51 | Day surgery (SDC) | payer OTHER ==
[2018-11-25] MEDS ORDERED: PROPOFOL 20 ML ONE ×3 (16:23→17:32)
[2018-11-25] MEDS ORDERED: LIDOCAINE HCL/PF 2% SDV 5ML VIAL ONE (16:23)
[2018-11-25 16:42] VITALS: BMI 24.7
[2018-11-25] MEDS ORDERED: ONDANSETRON 4 MG/2 ML VIAL IVPUSH PRN (16:42)
[2018-11-25] MEDS ORDERED: oxyCODONE HCL 5 MG TABLET PO PRN ×2 (16:42)
[2018-11-25] MEDS ORDERED: LACTATED RINGERS SOLUTION 1,000 ML IV SCH (16:45)
[2018-11-25] MEDS ORDERED: DEXAMETHASONE SOD PHOSPHATE 4 MG/1 ML VIAL ONE ×2 (17:17→17:55)
[2018-11-25 17:18] LABS: BASO % 0.3 % (0-2.0); HEMATOCRIT 30.7 % (32.4-45.2); HEMOGLOBIN 10.3 GM/dL (10.7-15.3); LYMPH % 12.2 % (8-40); MCH 26.7 pg (25.7-33.7); MCHC 33.5 g/dl (32.0-36.0); MEAN CELL VOLUME 79.8 fl (80-96); MEAN PLT VOLUME 9.3 fl (7.5-11.1); MONO % 4.9 % (3.8-10.2); NEUT % 82.6 % (42.8-82.8); PLATELET COUNT 222 K/MM3 (134-434); RBC 3.85 M/mm3 (3.60-5.2); RDW 16.2 % (11.6-15.6); WHITE BLOOD COUNT 9.1 K/mm3 (4.0-10.0)
[2018-11-25] MEDS ORDERED: ACETAMINOPHEN INJECTION 100 ML IVPB ONE (17:37)
[2018-11-25] MEDS ORDERED: CLINDAMYCIN 600 MG PREMIX BAG IVPB ONE (17:45)
[2018-11-25] MEDS ORDERED: KETOROLAC TROMETHAMINE 30 MG/1 ML VIAL ONE (17:55)
--- NOTE | 2018-11-25 18:08 | HP ---
Past Medical History - Primary Care Physician PCP:: Perfecto Calhoun - Admission Chief Complaint: 28yo P2 with spontaneous Ab at 11wks and retained POC. History of Present Illness: Incomplete Ab at 11wk. Pt was seen in ER yesterday and found to have anemia. She was seen in-office today and found to have retained POC on TVUS. Not bleeding heavily. 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 Cardiovascular: No: AFIB, Aneurysm, Aortic Insufficiency, Aortic Stenosis, CAD, CHF, Deep Vein Thrombosis, HTN, Hyperlipdemia, KS, Mitral Insufficiency, Mitral Stenosis, Murmur, Pulmonary Hypertension, Other Pulmonary: No: Asthma, Bronchitis, Cancer, COPD, O2 Dependent, Pneumonia, Previously Intubated, Pulmonary Embolus, Pulmonary Fibrosis, Sleep Apnea, Other Gastrointestinal: Yes: Other (Hyperemesis Gravidarum) Hepatobiliary: No: Cirrhosis, Cholelithiasis, Cholecystitis, Choledocholithiasis , Hepatitis A, Hepatitis B, Hepatitis C, Other Renal/: No: Renal Failure, Renal Inusuff, BPH, Cancer, Hematuria, Hemodialysis , Neurogenic Bladder, Renal Calculi, UTI, Other ...Para: 2 ...Term: 2 ... Weeks Gestation by Dates: 11 Heme/Onc: Yes: Anemia Infectious Disease: Yes: Other (conjunctivitis) Psych: No: Addictions, Anxiety, Bipolar, Depression, Panic, Psychosis, Schizophrenia, Other Musculoskeletal: No: Bursitis, Chronic low back pain, Hemiparesis, Hemiplegia, Osteoarthritis, Paraplegia, Other Rheumatology: No: Fibromyalgia, Gout, Lupus, Rheumatoid Arthritis, Sarcoidosis, Vasculitis, Other ENT: No: Allergic Rhinitis, Sinusitis, Other Endocrine: No: Citrus's Disease, Clifton's Disease, Diabetes Insipidus, Diabetes Mellitus, Hyperparathyroidism, Hyperthyroidism, Hypothyroidism, Osteopenia, SIADH, Other Dermatology: No: Basal Cell, Cellulitis, Eczema, Melanoma, Psoriasis, Squamous Cell, Other - Past Surgical History Past Surgical History: Yes: Cholecystectomy Hx Myomectomy: No Hx Transabdominal Cerclage: No Additional Surgical History: D&E - Smoking History Smoking history: Never smoked Have you smoked in the past 12 months: No Aproximately how many cigarettes per day: 0 - Alcohol/Substance Use Hx Alcohol Use: No History of Substance Use: reports: None - Social History Usual Living Arrangement: Yes: With Parent, With Child ADL: Independent History of Recent Travel: No Home Medications - Allergies Allergies/Adverse Reactions: Allergies Allergy/AdvReac Type Severity Reaction Status Date / Time amoxicillin [Amoxicillin] Allergy Severe Rash Verified 11/25/18 16:46 Penicillins Allergy Severe Rash Verified 11/25/18 16:46 ceftriaxone Allergy Mild Rash Verified 11/25/18 16:46 aspirin AdvReac Intermediate Verified 11/25/18 16:46 - Home Medications Home Medications: Ambulatory Orders NK [No Known Home Medication] 11/25/18 Family Disease History - Family Disease History Family History: Unremarkable Review of Systems - Review of Systems Constitutional: reports: Unintentional Wgt. 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: Vital Signs Temperature 98.6 F 11/25/18 16:36 Pulse Rate 108 H 11/25/18 16:36 Respiratory Rate 18 11/25/18 16:36 Blood Pressure 114/79 11/25/18 16:36 O2 Sat by Pulse Oximetry (%) 97 11/25/18 16:44 Constitutional: Yes: Well Nourished, No Distress, Calm Eyes: Yes: WNL, Conjunctiva Clear, EOM Intact HENT: Yes: WNL, Atraumatic, Normocephalic Neck: Yes: WNL, Supple, Trachea Midline Cardiovascular: Yes: WNL, Regular Rate and Rhythm Respiratory: Yes: WNL, Regular, CTA Bilaterally Gastrointestinal: Yes: WNL, Normal Bowel Sounds, Soft ...Rectal Exam: Yes: Deferred Renal/: Yes: WNL Pelvis: Yes: WNL External Genitalia: Yes: Normal Internal Exam Deferred: No Vaginal Exam: Yes: Bleeding Cervix: Yes: Other (os 1cm open) Uterus: Yes: Freely Moveable, Anteverted, Firm Adnexa: Normal: Left, Right Musculoskeletal: Yes: WNL Extremities: Yes: WNL Edema: No Integumentary: Yes: WNL Neurological: Yes: WNL, Alert, Oriented ...Motor Strength: WNL Psychiatric: Yes: WNL, Alert, Oriented Labs: CBC, BMP 11/25/18 16:15 Imaging - Results Ultrasound: Report Reviewed Assessment/Plan 28yo P2 with incomplete and retained POC. Pt is admitted for suction/D& C. We had discussed the risks, benefits, alternatives of surgery at length including but not limited to infection, bleeding, scarring, perforation, amenorrhea, infertility, hysterectomy, etc. The pt verbalized understanding and requested to proceed with surgery. I emphasized that all surgeries have risks and no guarantees can be provided.
--- NOTE | 2018-11-25 18:14 | OP ---
Operative Note - Note: Operative Date: 11/25/18 Pre-Operative Diagnosis: Incomplete Ab Operation: Suction, D&C Findings: Small AV uterus, cervical os dilated to 1cm. Large amount of retained POC removed with suction, D&C Post-Operative Diagnosis: Same as Pre-op Surgeon: Perfecto Calhoun Anesthesiologist/COMMERCIAL MAKEUP ARTIST: Rachel Oshea Anesthesia: General Specimens Removed: POC Estimated Blood Loss (mls): 75 Blood Volume Replaced (mls): 0 Fluid Volume Replaced (mls): 500 Operative Report Dictated: Yes
[2018-11-25 20:21] VITALS: TEMP 98.1
[2018-11-25 21:43] VITALS: BP 102/58; PULSE 76
--- NOTE | 2018-11-26 12:02 | OP ---
DATE OF OPERATION: 11/25/2018 PREOPERATIVE DIAGNOSIS: Incomplete at 11 weeks . POSTOPERATIVE DIAGNOSIS: Incomplete at 11 weeks . PROCEDURE: Suction dilation and curettage, surgical treatment of incomplete under 14 weeks. SURGEON: Perfecto Calhoun MD ANESTHESIOLOGIST: Rachel Oshea MD ANESTHESIA: General. COMPLICATIONS: None. PATHOLOGY: Products of conception. ESTIMATED BLOOD LOSS: 75 mL. IV FLUIDS: 500 mL crystalloid. FINDINGS: Examination under anesthesia revealed a small retroverted uterus with no pelvic or adnexal masses. The cervical os was found to be 1 cm dilated. A small amount of bleeding was noted from the cervix. Large amount of retained products of conception were noted during suction curettage. No retained tissue was noted at the end of the procedure. PROCEDURE DESCRIPTION: The patient was met preoperatively. Risks, benefits, and alternatives of surgery were discussed in detail. All questions were answered. The consent form was reviewed. The patient verbalized her understanding. The consent form was signed and the patient requested to proceed with the surgery. The patient was brought to the OR with the IV running. She was placed on the surgical table in a supine position. The general anesthesia was achieved without difficulty. The patient was then placed in a dorsal lithotomy position using adjustable Efrain stirrups. She was examined under anesthesia, with the findings as described above. The patient was then prepped and draped in the usual sterile fashion. A timeout procedure was conducted as per standard protocol. A sterile speculum was then introduced inside the patient's vagina, with good visualization of the cervix. The cervix was grasped with a single-tooth tenaculum. The cervical os was dilated and did not require additional dilation. A 9-mm suction curette was introduced inside the uterine cavity. A suction curettage was performed, and a large amount of retained products of conception was removed. A gentle sharp curettage was then performed to assure no retained tissue inside the uterine cavity. Once the procedure was completed, all of the instruments were removed from the patient. Good hemostasis was confirmed. Sponge, lap, and instrument counts were correct. The patient was returned to supine position. She was then transferred to recovery room in stable condition. Fany BARKER/[id number]
--- NOTE | 2018-11-27 13:39 | PATH ---
Surgical Pathology Report Patient Name: FABIO SARGENT [facility]. Rec. #: [id number] /Age/Gender: 1990 (Age: 28) / F Account: [id number] Location: [facility] SURGICAL Taken: 11/25/2018 Received: 11/26/2018 Reported: 11/27/2018 Physicians: Perfecto Calhoun M.D. Specimen(s) Received PRODUCTS OF CONCEPTION Clinical History Incomplete Final Diagnosis PRODUCTS OF CONCEPTION, DILATION AND CURETTAGE: IMMATURE CHORIONIC VILLI CONSISTENT WITH PRODUCTS OF CONCEPTION. Electronically Signed Sarah Alejandro M.D. Gross Description Received in formalin labeled "products of conception," is a 9.5 x 9.0 x 2.5 cm aggregate of sesay red soft tissue fragments. Villous tissue is identified. No somatic tissue is identified. A civil rights representative portion is submitted in one cassette. /11/26/2018 saudi11/26/2018
== END 2018-11-25 22:25 | disposition home or self-care (01) ==
LOC: JOR 15:51 → JASU-SURG 15:51 → J3W 20:30 → JASU-SURG 22:25
PROVIDERS: ATTEND Obstetrics & Gynecology
PROC: 10D17ZZ Extraction of Products of Conception, Retained, Via Natural or Artificial Opening (ICD-10-PCS; principal; 2018-11-25 17:00)
DX: O03.4 Incomplete spontaneous abortion without complication (principal); Z3A.11 11 weeks gestation of pregnancy
CPT/HCPCS: 36415; 85025; 86850; 86870; 86900; 86901; 86902; 88305-TC; 94760; J0131

== ENCOUNTER 2018-11-30 18:51 | Emergency (ER) | payer OTHER ==
[2018-11-30 18:56] VITALS: BMI 24.7
--- NOTE | 2018-11-30 20:07 | PDOC ---
History of Present Illness - General Chief Complaint: Nausea/Vomiting Stated Complaint: VOMITING/MISCARRIAGE 11/24/2018 Time Seen by Provider: 11/30/18 20:07 History Source: Patient, Parent(s) Exam Limitations: No Limitations - History of Present Illness Initial Comments: 28 year old female A2 with PMH migraine headaches presented to ED for headache x7 days. Pt reported her headache is located to her entire head, similar to prior migraines, but that this migraine is persisting despite her medication (Nadolol 20 mg daily) her neurologist Dr. Villatoro prescribed for her to use while . Pt recently had D&C of 12 week incomplete x6 days ago. Pt stated since then she has not been able to manage her migraine headache, also complaining of nausea, vomiting, generalized weakness. Pt reported she was started on Cipro 500 mg BID x10 days 11/26/18, Flagyl 500 mg BID x7 days 11/25/[address] Calhoun who performed the D&C. Pt denied fever, chest pain, shortness of breath, cough, diarrhea. Pt also has UTI, being treated with Cipro, pt was called by [facility] with positive urine culture, was told to continue prescribed antibiotics. Pt reported she has been able to tolerate PO, has missed her antibiotic doses today. Past History - Past Medical History Allergies/Adverse Reactions: Allergies Allergy/AdvReac Type Severity Reaction Status Date / Time amoxicillin [Amoxicillin] Allergy Severe Rash Verified 11/30/18 18:56 Penicillins Allergy Severe Rash Verified 11/30/18 18:56 ceftriaxone Allergy Mild Rash Verified 11/30/18 18:56 aspirin AdvReac Intermediate Verified 11/30/18 18:56 Home Medications: Ambulatory Orders metroNIDAZOLE [Flagyl -] 500 mg PO BID #14 tablet 11/25/18 Anemia: No Asthma: No Cancer: No Cardiac Disorders: No GI Disorders: Yes (GERD) - Surgical History Cholecystectomy: Yes (2012) - Reproductive History (#): 4 Para: 2 Therapeutic (s) & number: Yes (1) Spontaneous : 1 - Immunization History Immunization Up to Date: Yes - Suicide/Smoking/Psychosocial Hx Smoking Status: No Smoking History: Never smoked Have you smoked in the past 12 months: No Number of Cigarettes Smoked Daily: 0 Hx Alcohol Use: No Drug/Substance Use Hx: No Substance Use Type: None Hx Substance Use Treatment: No Review of Systems - Review of Systems Able to Perform ROS?: Yes Comments:: General: denied fever, chills, generalized weakness. HEENT: denied sore throat, rhinorrhea, ear pain. Cardiovascular: denied chest pain, palpitations, syncope, diaphoresis. Respiratory: denied shortness of breath, cough, sputum production, hemoptysis. Gastrointestinal: admitted to nausea, vomiting, diarrhea. denied abdominal pain , constipation, blood in stool. Genitourinary: denied dysuria, increased urinary frequency, hematuria, urinary incontinence, flank pain. Back: denied back pain. Musculoskeletal: denied joint pain, muscle pain, joint swelling. Neurological: denied headache, dizziness, numbness, tingling, weakness. Integumentary: denied rash, laceration, abrasion. Hematologic/Lymphatic: denied bruising or bleeding. *Physical Exam - Vital Signs Last Vital Signs Temp Pulse Resp BP Pulse Ox 98.1 F 98 H 18 104/74 99 11/30/18 18:53 11/30/18 18:53 11/30/18 18:53 11/30/18 18:53 11/30/18 18:53 - Physical Exam Comments: Constitutional: Well-nourished, Well-developed, appearing stated age. pale. HEENT: head is normocephalic, atraumatic. EOMI. PERRLA. Neck: supple. Full ROM. Cardiovascular: regular heart rhythm. no murmurs. no pericardial friction rub. Respiratory: clear to auscultation bilaterally. no crackles, rhonchi or wheezing. no stridor. Gastrointestinal: soft, nontender. normal bowel sounds. no rebound, guarding, masses. Extremities: peripheral pulses intact. no lower extremity edema. Neurological: CN 2-12 grossly intact. moves all four extremities. Psych: awake, alert, oriented x3. follows commands. answers questions appropriately. Pelvic: deferred. ED Treatment Course - LABORATORY CBC & Chemistry Diagram: 11/30/18 20:25 11/30/18 20:25 Medical Decision Making - Medical Decision Making 11/30/18 20:35 28 year old female with above PMH presented to ED for migraine headache, similar to prior, but unable to be relieved by Nadolol. Pt likely needs her migraine medications altered now that she is not , recent D&C likely trigger for persistent migraine. Will treat symptomatically. Initial Vital Signs Temp Pulse Resp BP Pulse Ox 98.1 F 98 H 18 104/74 99 11/30/18 18:53 11/30/18 18:53 11/30/18 18:53 11/30/18 18:53 11/30/18 18:53 Afebrile. No tachycardia, but borderline. No tachypnea. Mild hypotension. No hypoxia on room air. Labs ordered: CBC, CMP, mag, T&S, coags, serum Imaging ordered: none Medications ordered: tylenol IV, normal saline bolus 1000 cc once, reglan 10 mg IV once, benadryl 25 mg IV once, cipro IV, flagyl IV 11/30/18 20:55 CBC WBC 6.4 K/mm3 (4.0-10.0) 11/30/18 20:25 RBC 3.72 M/mm3 (3.60-5.2) 11/30/18 20:25 Hgb 9.9 GM/dL (10.7-15.3) L 11/30/18 20:25 Hct 29.3 % (32.4-45.2) L 11/30/18 20:25 MCV 78.8 fl (80-96) L 11/30/18 20:25 MCH 26.6 pg (25.7-33.7) 11/30/18 20:25 MCHC 33.8 g/dl (32.0-36.0) 11/30/18 20:25 RDW 16.5 % (11.6-15.6) H 11/30/18 20:25 Plt Count 238 K/MM3 (134-434) 11/30/18 20:25 MPV 8.7 fl (7.5-11.1) 11/30/18 20:25 Absolute Neuts (auto) 3.8 K/mm3 (1.5-8.0) 11/30/18 20:25 Neutrophils % 59.1 % (42.8-82.8) D 11/30/18 20:25 Lymphocytes % 31.4 % (8-40) D 11/30/18 20:25 Monocytes % 7.8 % (3.8-10.2) 11/30/18 20:25 Eosinophils % 1.2 % (0-4.5) D 11/30/18 20:25 Basophils % 0.5 % (0-2.0) 11/30/18 20:25 Nucleated RBC % 0 % (0-0) 11/30/18 20:25 No leukocytosis. Microcytic anemia. INR, PTT INR 1.12 (0.83-1.09) H 11/30/18 20:25 11/30/18 21:31 CMP Sodium 143 mmol/L (136-145) 11/30/18 20:25 Potassium 3.7 mmol/L (3.5-5.1) 11/30/18 20:25 Chloride 108 mmol/L (98-107) H 11/30/18 20:25 Carbon Dioxide 27 mmol/L (21-32) 11/30/18 20:25 Anion Gap 8 MMOL/L (8-16) 11/30/18 20:25 BUN 7.6 mg/dL (7-18) 11/30/18 20:25 Creatinine 0.6 mg/dL (0.55-1.3) 11/30/18 20:25 Est GFR (CKD-EPI)AfAm 145.80 11/30/18 20:25 Est GFR (CKD-EPI)NonAf 125.80 11/30/18 20:25 Random Glucose 92 mg/dL (74-106) 11/30/18 20:25 Calcium 8.9 mg/dL (8.5-10.1) 11/30/18 20:25 Magnesium 2.2 mg/dL (1.8-2.4) 11/30/18 20:25 Total Bilirubin 0.3 mg/dL (0.2-1) 11/30/18 20:25 AST 24 U/L (15-37) 11/30/18 20:25 ALT 26 U/L (13-61) 11/30/18 20:25 Alkaline Phosphatase 75 U/L (45-117) 11/30/18 20:25 Total Protein 7.3 g/dl (6.4-8.2) 11/30/18 20:25 Albumin 3.3 g/dl (3.4-5.0) L 11/30/18 20:25 Serum , Qual Positive 11/30/18 20:25 Betaquant ~2000 -Likely residual hormone from recent spontaneous /D&C 11/30/18 21:59 Pt reassessed, sleeping comfortably. Medications ordered: normal saline bolus 1000 cc once 11/30/18 23:29 Pt reassessed, sleeping comfortably, reported headache still present. Second liter running. Pt has not eaten all day. Pt given sandwhich and juice. 12/01/18 00:35 Pt reassessed, reported headache improved from 10/10 to 6/10. Pt reported back of head feels "sore". Medications ordered: toradol 30 mg IV once Neurologist Dr. Villatoro is out of town until Dec 10, pt needs updated migraine medication and neuro evaluation. Will ED obs and have Dr. Bloom see the patient in the AM. Consult placed. Case discussed with Dr. Laws, IM Attending. *DC/Admit/Observation/Transfer Diagnosis at time of Disposition: Anemia, Vomiting, History of dilation and curettage - Discharge Dispostion Condition at time of disposition: Stable Decision to Admit order: Yes - Referrals Referrals: Ana Blunt MD [Primary Care Provider] - Perfecto Calhoun MD [Staff Physician] - Andrew Villatoro MD [Staff Physician] - - Patient Instructions Printed Discharge Instructions: DI for Migraine, DI for a Dilation and Curettage Additional Instructions: Your blood work showed you are anemic. Follow up with Dr. Calhoun and your primary care doctor on this finding. Your lab work was otherwise normal. Call Dr. Villatoro's office in the morning to ask for an appointment to change your migraine medications. Follow up within 3 days. Your care is not complete until you follow up. Follow up with Dr. Calhoun within 3 days, your care is not complete until you follow up. Take Tylenol over the counter for your pain, take as advised on label. Drink lots of water throughout the day to stay hydrated. Eat at least 3 meals a day. Sleep at least 8 hours a night. Continue taking all medication you were priorly prescribed. Return to the Emergency Department for increasing pain despite tylenol use, weakness, numbness, tingling, chest pain, shortness of breath, increasing dysuria, fever, vomiting, increasing vaginal discharge, or any other new, worsening or concerning symptoms. - Post Discharge Activity Forms/Work/School Notes: Back to Work, Back to School
[2018-11-30] MEDS ORDERED: METOCLOPRAMIDE HCL INJECTION 10 MG/2 ML VIAL IVPUSH ONE (20:08)
[2018-11-30] MEDS ORDERED: SODIUM CHLORIDE 1,000 ML IV STA ×2 (20:08→21:59)
[2018-11-30] MEDS ORDERED: ACETAMINOPHEN 1000 MG/100 ML VIAL (NON FORMULARY) IVPB ONE (20:08)
[2018-11-30 20:38] LABS: BASO % 0.5 % (0-2.0); EOS % 1.2 % (0-4.5); HEMATOCRIT 29.3 % (32.4-45.2); HEMOGLOBIN 9.9 GM/dL (10.7-15.3); LYMPH % 31.4 % (8-40); MCH 26.6 pg (25.7-33.7); MCHC 33.8 g/dl (32.0-36.0); MEAN CELL VOLUME 78.8 fl (80-96); MEAN PLT VOLUME 8.7 fl (7.5-11.1); MONO % 7.8 % (3.8-10.2); NEUT % 59.1 % (42.8-82.8); RBC 3.72 M/mm3 (3.60-5.2); RDW 16.5 % (11.6-15.6); WHITE BLOOD COUNT 6.4 K/mm3 (4.0-10.0)
[2018-11-30 20:50] LABS: INR 1.12 (0.83-1.09); PLATELET COUNT 238 K/MM3 (134-434); PROTHROMBIN TIME (PATIENT) 13.2 SEC (9.7-13.0)
[2018-11-30 20:52] LABS: ACTIVATED PTT 29.2 SECONDS (25.2-36.5)
[2018-11-30] MEDS ORDERED: METOCLOPRAMIDE HCL INJECTION 10 MG/2 ML VIAL ONE (20:57)
[2018-11-30] MEDS ORDERED: ACETAMINOPHEN INJECTION 100 ML IVPB ONE (20:58)
[2018-11-30 21:03] LABS: ALBUMIN 3.3 g/dl (3.4-5.0); BILIRUBIN,TOTAL 0.3 mg/dL (0.2-1); BLOOD UREA NITROGEN 7.6 mg/dL (7-18); CALCIUM 8.9 mg/dL (8.5-10.1); CREATININE 0.6 mg/dL (0.55-1.3); MAGNESIUM 2.2 mg/dL (1.8-2.4); POTASSIUM 3.7 mmol/L (3.5-5.1); TOT PROT 7.3 g/dl (6.4-8.2)
[2018-11-30] MEDS ORDERED: CIPROFLOXACIN 400 MG/D5W 400 MG/200 ML IVPB IVPB ONE (21:04)
--- NOTE | 2018-11-30 23:05 | PDOC ---
Documentation entered by Clemencia Malik SCRIBE, acting as scribe for Carmen Carver MD. Carmen Carver MD: This documentation has been prepared by the rosemary, Clemencia Malik SCRIBE, under my direction and personally reviewed by me in its entirety. I confirm that the documentation accurately reflects all work, treatment, procedures, and medical decision making performed by me. Attending Attestation - Resident Resident Name: Mariola Perez - ED Attending Attestation I have performed the following: I have examined & evaluated the patient, The case was reviewed & discussed with the resident, I agree w/resident's findings & plan, Exceptions are as noted - HPI HPI: 11/30/18 21:43 Ms Ann is a 28 yo F h/o migraines who presents to the ER due to persistent migraine for 3 months. The patient reports a history of chronic and severe migraines for which she has taken multiple medication (Tryptans do not work, was on topamax, was also on Amitryptiline which did work but then stopped working, Fiorecet does not work). During her , the patient was unable to take any of her standard medications. Was seen by Dr Villatoro who started Sotalol which she states does not work, therefore, she has had a migraine headache throughout this . Pt s/p recent spontaneous followed by a DNC procedure several days ago. She was put on Flagyl and Cipro She ultimately was seen at an Urgent care as well, diagnosed with a UTI (per patient, cultures sensitive to Cipro) Pt has had a difficult time keeping her medications down due to nausea and vomiting. She feels weak and is having difficulty getting out of bed to take care of her other children No fevers or chills No diarrhea No chest pain No neurologic symptoms/changes 11/30/18 22:52 - Physicial Exam PE: 11/30/18 22:47 GENERAL: The patient is in no acute distress, pt looks weak. ENT: Ears normal, nares patent, oropharynx clear without exudates. Dry mucous membranes. NECK: Normal range of motion, supple LUNGS: Breath sounds equal, clear to auscultation bilaterally. No wheezes, and no crackles. HEART:Regular rate and rhythm, normal S1 and S2 without murmur, rub or gallop. ABDOMEN: Soft, nontender, normoactive bowel sounds. EXTREMITIES: Normal range of motion, no edema. NEUROLOGICAL: Cranial nerves II through XII grossly intact. Normal speech. No focal neurological deficits. SKIN: Warm, Dry, normal turgor, no rashes or lesions noted. 11/30/18 23:03 - Medical Decision Making 11/30/18 23:03 28 yo F presenting to the ER for assessment of persistent migraine headache, vomiting, weakness Will do basic labs Will repeat UA will give IV antibiotics - cipro/Flagyl Will give medications for migraines Will consider observation if symptoms do not improve 11/30/18 23:05 Laboratory Tests 11/30/18 11/30/18 11/30/18 20:25 20:25 20:25 WBC 6.4 Hgb 9.9 L Hct 29.3 L Plt Count 238 INR 1.12 H BUN 7.6 Creatinine 0.6 Beta HCG, Quant 2211.2 Serum , Qual 11/30/18 20:25 WBC Hgb Hct Plt Count INR BUN Creatinine Beta HCG, Quant Serum , Qual Positive Will place on ED OBS
--- NOTE | 2018-12-01 01:37 | PN ---
Teaching Attending Note Name of Resident: Jose Carlos Ramos ATTENDING PHYSICIAN STATEMENT I saw and evaluated the patient. I reviewed the resident's note and discussed the case with the resident. I agree with the resident's findings and plan as documented. Seen and examined; please see resident note for further historical information. Briefly, this is a 28 y/o female presenting as a ED observation patient to the ER with migraines; she is afebrile and hemodynamically stable. Recent D and C and has not been able to keep down abc (given cipro/flagyl post procedure , also for UTI). She had nausea after starting venlafaxine sunday (post-DNC) with vomiting (NBNB). Migraines persisting throughout (no red flag sx ; some photo/phono phobia with blurring but no FNDs or seizure like activity, etc.). with typical symptoms but worsened as of late. Given nausea/vomiting with poor PO intake and persisting migraine sx she comes to the ER. Pending neurological consultation; she follows now with Dr. Villatoro who is being covered by Dr. Bloom. VS, labs, imaging reviewed NAD, AAO, resting in bed CN2-12 wnl, no fnd. Moves all 4 ext with normal strength and no changes in sensorium RRR s1/2 Lungs CTAB, w/ sym exp NT ND +BS CN2-12 wnl, no fnd Normal mood, appropriate behavior EKG pending Neuroimaging per consulting. ASSESSMENT AND PLAN: Patient presents with migraines following DNC;these are her typical migraines but with nausea and vomiting (worse with effexor)that made it slightly worse and prompted ER presentation # Migraine -Failed amytriptaline in past; will try a dose of sumatriptan and observe as well as mag infusion. Followup with primary neuro as OP. Dr. Bloom will cover and was contacted by ER. # S/P DNC -Noted; recommend OB consult and possible TVU but will defer to OB for further imaging # Subacute cystitis -Obtain OP sensativities; continue OP abx. Check QTc. Confirm abx with pharm. ? concern of septic OP given abx choices; continue IV (got 24 hr coverage LQ) and followup records. # Nausea/vomiting -Somewhat associated with the migraine, but was much more pronounced with the venlafaxine. Very common and well known side effect. She has self-DC'd the medication; can hold off and recommend she FU with PCP to get additional guidance. Full Code
--- NOTE | 2018-12-01 01:51 | HP ---
CHIEF COMPLAINT: Migraine for the past 3 months, worsened over the past 7 days with associated NBNB vomiting PCP: Dr. Alexis HISTORY OF PRESENT ILLNESS: The patient is a 28 year old female with past medical history significant for migraines for the past 3 months, which have worsened over the past 7 days with associated vomiting. She had a spontaneous followed by [facility] 6 days ago, after which she was placed on Cipro and Flagyl. After the , her migraines worsened. She also started taking Venlafaxine after the [facility], which is when her nausea and vomiting worsened. Furthermore, she was informed by the clinic that she had a UTI on the basis of positive urine cultures. The migraine begins around her eye and shifts towards the back of her head, is sudden in onset, last anywhere between a few hours to an entire day, described as throbbing in quality, aggravated by movement and light, and alleviated by lying still in a dark room. She also complains of associated blurring of vision , dizziness, left sided chest pain and tightness, palpitations, non-exertional dyspnea, which she reports occurs when she feels a panic attack coming. No associated fevers or chills, stomach pain, diarrhea, or cough. ER course was notable for: (1) Levquin and Flagyl administered (2) Benadryl for nausea (3) N/S Recent Travel: None PAST MEDICAL HISTORY: Anxiety PAST SURGICAL HISTORY: GB removal in August 2012 Social History: Smoking: none Alcohol: none Drugs: none Family History: Allergies amoxicillin [Amoxicillin] Allergy (Severe, Verified 11/30/18 18:56) Rash Penicillins Allergy (Severe, Verified 11/30/18 18:56) Rash ceftriaxone Allergy (Mild, Verified 11/30/18 18:56) Rash ERYTHEMA,ITCHING. aspirin Adverse Reaction (Intermediate, Verified 11/30/18 18:56) patient bruises HOME MEDICATIONS: Home Medications Medication Instructions Recorded metroNIDAZOLE [Flagyl -] 500 mg PO BID #14 tablet 11/25/18 REVIEW OF SYSTEMS CONSTITUTIONAL: Absent: fever, chills, diaphoresis, generalized weakness, malaise, loss of appetite, weight change HEENT: visual changes Absent: rhinorrhea, nasal congestion, throat pain, throat swelling, difficulty swallowing, mouth swelling, ear pain, eye pain, CARDIOVASCULAR: palpitations Absent: chest pain, syncope, irregular heart rate, lightheadedness, peripheral edema RESPIRATORY: Absent: cough, shortness of breath, dyspnea with exertion, orthopnea, wheezing, stridor, hemoptysis GASTROINTESTINAL: Absent: abdominal pain, abdominal distension, nausea, vomiting, diarrhea, constipation, melena, hematochezia GENITOURINARY: Absent: dysuria, frequency, urgency, hesitancy, hematuria, flank pain, genital pain MUSCULOSKELETAL: Absent: myalgia, arthralgia, joint swelling, back pain, neck pain SKIN: Absent: rash, itching, pallor HEMATOLOGIC/IMMUNOLOGIC: Absent: easy bleeding, easy bruising, lymphadenopathy, frequent infections ENDOCRINE: Absent: unexplained weight gain, unexplained weight loss, heat intolerance, cold intolerance NEUROLOGIC: headache Absent: focal weakness or paresthesias, dizziness, unsteady gait, seizure, mental status changes, bladder or bowel incontinence PSYCHIATRIC: Absent: anxiety, depression, suicidal or homicidal ideation, hallucinations. PHYSICAL EXAMINATION Vital Signs - 24 hr 11/30/18 18:53 Temperature 98.1 F Pulse Rate 98 H Respiratory 18 Rate Blood Pressure 104/74 O2 Sat by Pulse 99 Oximetry (%) GENERAL: Awake, alert, and fully oriented, in no acute distress. HEAD: Normal with no signs of trauma. EYES: Pupils equal, round and reactive to light, extraocular movements intact, sclera anicteric, conjunctiva clear. No lid lag. EARS, NOSE, THROAT: Ears normal, nares patent, oropharynx clear without exudates. Moist mucous membranes. NECK: Normal range of motion, supple without lymphadenopathy, JVD, or masses. LUNGS: Breath sounds equal, clear to auscultation bilaterally. No wheezes, and no crackles. No accessory muscle use. HEART: Regular rate and rhythm, normal S1 and S2 without murmur, rub or gallop. ABDOMEN: Soft, nontender, not distended, normoactive bowel sounds, no guarding, no rebound, no masses. No hepatomegaly or splenomegaly. MUSCULOSKELETAL: Normal range of motion at all joints. No bony deformities or tenderness. No CVA tenderness. UPPER EXTREMITIES: 2+ pulses, warm, well-perfused. No cyanosis. No clubbing. No peripheral edema. LOWER EXTREMITIES: 2+ pulses, warm, well-perfused. No calf tenderness. No peripheral edema. NEUROLOGICAL: Cranial nerves II-XII intact. Normal speech. Normal gait. PSYCHIATRIC: Cooperative. Good eye contact. Appropriate mood and affect. SKIN: Warm, dry, normal turgor, no rashes or lesions noted, normal capillary refill. Laboratory Results - last 24 hr 11/30/18 11/30/18 11/30/18 20:25 20:25 20:25 WBC 6.4 RBC 3.72 Hgb 9.9 L Hct 29.3 L MCV 78.8 L MCH 26.6 MCHC 33.8 RDW 16.5 H Plt Count 238 MPV 8.7 Absolute Neuts (auto) 3.8 Neutrophils % 59.1 D Lymphocytes % 31.4 D Monocytes % 7.8 Eosinophils % 1.2 D Basophils % 0.5 Nucleated RBC % 0 PT with INR 13.20 H INR 1.12 H PTT (Actin FS) 29.2 Sodium 143 Potassium 3.7 Chloride 108 H Carbon Dioxide 27 Anion Gap 8 BUN 7.6 Creatinine 0.6 Est GFR (CKD-EPI)AfAm 145.80 Est GFR (CKD-EPI)NonAf 125.80 Random Glucose 92 Calcium 8.9 Magnesium 2.2 Total Bilirubin 0.3 AST 24 ALT 26 Alkaline Phosphatase 75 Total Protein 7.3 Albumin 3.3 L Beta HCG, Quant 2211.2 Serum , Qual Blood Type Antibody Screen Antibody Identification Antigen Identification 11/30/18 11/30/18 20:25 20:25 WBC RBC Hgb Hct MCV MCH MCHC RDW Plt Count MPV Absolute Neuts (auto) Neutrophils % Lymphocytes % Monocytes % Eosinophils % Basophils % Nucleated RBC % PT with INR INR PTT (Actin FS) Sodium Potassium Chloride Carbon Dioxide Anion Gap BUN Creatinine Est GFR (CKD-EPI)AfAm Est GFR (CKD-EPI)NonAf Random Glucose Calcium Magnesium Total Bilirubin AST ALT Alkaline Phosphatase Total Protein Albumin Beta HCG, Quant Serum , Qual Positive Blood Type O POSITIVE Antibody Screen Positive Antibody Identification Anti d Antigen Identification No Result Required. ASSESSMENT/PLAN: #Migraine - Started on sumatriptan 25mg - L/R @ 100 - Neuro consulted (Dr. Bloom) - Ondansetron, Metoclopramide for nausea - Mg administered (have been shown to improve migraines) - TSH to r/o neuroendocrine etiology - EKG to check QTc (Levaquin shoul be avoided in patients with prolonged QTc) - Nausea increased after taking Venlafaxine, will avoid #Cystitis, asymptomatic - Continue abx #Post DNC - Dose of Levaquin will cover for 24 hours, continue Flagyl - OB consult #FEN - Regular Diet #DVT PE - SCD, early ambulation Visit type - Emergency Visit Emergency Visit: Yes Care time: The patient presented to the Emergency Department on the above date and was hospitalized for further evaluation of their emergent condition. - New Patient This patient is new to me today: Yes Date on this admission: 12/01/18 - Critical Care Critical Care patient: No ATTENDING PHYSICIAN STATEMENT I saw and evaluated the patient. I reviewed the resident's note and discussed the case with the resident. I agree with the resident's findings and plan as documented. SUBJECTIVE: OBJECTIVE: ASSESSMENT AND PLAN:
[2018-12-01] MEDS ORDERED: SODIUM CHLORIDE 1,000 ML IV STA (05:16)
[2018-12-01] MEDS ORDERED: ONDANSETRON 4 MG/2 ML VIAL IVPUSH ONE (05:16)
[2018-12-01] MEDS ORDERED: ACETAMINOPHEN 1000 MG/100 ML VIAL (NON FORMULARY) IVPB ONE (05:16)
[2018-12-01] MEDS ORDERED: ACETAMINOPHEN INJECTION 100 ML IVPB ONE (05:23)
[2018-12-01] MEDS ORDERED: ONDANSETRON 4 MG/2 ML VIAL ONE (05:23)
[2018-12-01] MEDS ORDERED: ACETAMINOPHEN 325 MG TABLET (FP) PO PRN (05:44)
[2018-12-01] MEDS ORDERED: SUMAtriptan SUCCINATE 25 MG TABLET PO ONE (05:47)
[2018-12-01] MEDS ORDERED: LACTATED RINGERS SOLUTION 1,000 ML/1,000 ML INFUS.BAG IV SCH (06:00)
[2018-12-01] MEDS ORDERED: MAGNESIUM SULF 50% (8.12 MEQ/2 ML-1 GM VIAL) IVPB ONE (06:45)
[2018-12-01] MEDS ORDERED: MAGNESIUM 1GM/D5W - 1 GM/100 ML IVPB IVPB ONE (06:46)
[2018-12-01 09:24] LABS: MAGNESIUM 2.9 mg/dL (1.8-2.4)
--- NOTE | 2018-12-01 11:57 | CONSULT ---
Consult - text type - Consultation Consultation Note: Neurology CHIEF COMPLAINT: Migraine for the past 3 months, worsened over the past 7 days with associated NBNB vomiting PCP: Dr. Alexis HISTORY OF PRESENT ILLNESS: The patient is a 28 year old female with past medical history significant for migraines for the past 3 months, which have worsened over the past 7 days with associated vomiting. She had a spontaneous followed by [facility] 6 days ago, prior to admission, after which she was placed on Cipro and Flagyl. After the , her migraines worsened. She also started taking Venlafaxine after the [facility], which is when her nausea and vomiting worsened. Furthermore, she was informed by the clinic that she had a UTI on the basis of positive urine cultures. The migraine begins around her eye and shifts towards the back of her head, is sudden in onset, last anywhere between a few hours to an entire day, described as throbbing in quality, aggravated by movement and light, and alleviated by lying still in a dark room. She also complains of associated blurring of vision, dizziness, left sided chest pain and tightness, palpitations , non-exertional dyspnea, which she reports occurs when she feels a panic attack coming. No associated fevers or chills, stomach pain, diarrhea, or cough. Head CT completed - no evidence of intracranial lesion or hemorrhage. Reports having reactions to Imitrex (was given in ER with benadryl), fioricet does not help. Amitryptiline [place] 25mg by Dr. Villatoro who she sees but without benefit. Discussed trial of Propranolol 40mg and she was in agreement. 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 Should follow up as outpatient for further mgmt. Recent Travel: None PAST MEDICAL HISTORY: Anxiety PAST SURGICAL HISTORY: GB removal in August 2012 Social History: Smoking: none Alcohol: none Drugs: none Family History: HTN Allergies Allergy/AdvReac Type Severity Reaction Status Date / Time amoxicillin [Amoxicillin] Allergy Severe Rash Verified 11/30/18 18:56 Penicillins Allergy Severe Rash Verified 11/30/18 18:56 ceftriaxone Allergy Mild Rash Verified 11/30/18 18:56 aspirin AdvReac Intermediate Verified 11/30/18 18:56 HOME MEDICATIONS: Home Medications Medication Instructions Recorded metroNIDAZOLE [Flagyl -] 500 mg PO BID #14 tablet 11/25/18 REVIEW OF SYSTEMS CONSTITUTIONAL: Absent: fever, chills, diaphoresis, generalized weakness, malaise, loss of appetite, weight change HEENT: visual changes Absent: rhinorrhea, nasal congestion, throat pain, throat swelling, difficulty swallowing, mouth swelling, ear pain, eye pain, CARDIOVASCULAR: palpitations Absent: chest pain, syncope, irregular heart rate, lightheadedness, peripheral edema RESPIRATORY: Absent: cough, shortness of breath, dyspnea with exertion, orthopnea, wheezing, stridor, hemoptysis GASTROINTESTINAL: Absent: abdominal pain, abdominal distension, nausea, vomiting, diarrhea, constipation, melena, hematochezia GENITOURINARY: Absent: dysuria, frequency, urgency, hesitancy, hematuria, flank pain, genital pain MUSCULOSKELETAL: Absent: myalgia, arthralgia, joint swelling, back pain, neck pain SKIN: Absent: rash, itching, pallor HEMATOLOGIC/IMMUNOLOGIC: Absent: easy bleeding, easy bruising, lymphadenopathy, frequent infections ENDOCRINE: Absent: unexplained weight gain, unexplained weight loss, heat intolerance, cold intolerance NEUROLOGIC: headache Absent: focal weakness or paresthesias, dizziness, unsteady gait, seizure, mental status changes, bladder or bowel incontinence PSYCHIATRIC: Absent: anxiety, depression, suicidal or homicidal ideation, hallucinations. PHYSICAL EXAMINATION Vital Signs Period Temp Pulse Resp BP Sys/Schneider Pulse Ox Last 24 Hr 97.5 F-98.1 F 66-98 16-18 104-109/58-74 98-100 GENERAL: Awake, alert, and fully oriented, in no acute distress. HEAD: Normal with no signs of trauma. EYES: Pupils equal, round and reactive to light, extraocular movements intact, sclera anicteric, conjunctiva clear. No lid lag. EARS, NOSE, THROAT: Ears normal, nares patent, oropharynx clear without exudates. Moist mucous membranes. NECK: Normal range of motion, supple without lymphadenopathy, JVD, or masses. LUNGS: Breath sounds equal, clear to auscultation bilaterally. No wheezes, and no crackles. No accessory muscle use. HEART: Regular rate and rhythm, normal S1 and S2 without murmur, rub or gallop. ABDOMEN: Soft, nontender, not distended, normoactive bowel sounds, no guarding, no rebound, no masses. No hepatomegaly or splenomegaly. MUSCULOSKELETAL: Normal range of motion at all joints. No bony deformities or tenderness. No CVA tenderness. UPPER EXTREMITIES: 2+ pulses, warm, well-perfused. No cyanosis. No clubbing. No peripheral edema. LOWER EXTREMITIES: 2+ pulses, warm, well-perfused. No calf tenderness. No peripheral edema. NEUROLOGICAL: Cranial nerves II-XII intact. Normal speech. Normal gait. PSYCHIATRIC: Cooperative. Good eye contact. Appropriate mood and affect. SKIN: Warm, dry, normal turgor, no rashes or lesions noted, normal capillary refill. CBCD WBC 6.4 K/mm3 (4.0-10.0) 11/30/18 20:25 RBC 3.72 M/mm3 (3.60-5.2) 11/30/18 20:25 Hgb 9.9 GM/dL (10.7-15.3) L 11/30/18 20:25 Hct 29.3 % (32.4-45.2) L 11/30/18 20:25 MCV 78.8 fl (80-96) L 11/30/18 20:25 MCHC 33.8 g/dl (32.0-36.0) 11/30/18 20:25 RDW 16.5 % (11.6-15.6) H 11/30/18 20:25 Plt Count 238 K/MM3 (134-434) 11/30/18 20:25 MPV 8.7 fl (7.5-11.1) 11/30/18 20:25 CMP Sodium 143 mmol/L (136-145) 11/30/18 20:25 Potassium 3.7 mmol/L (3.5-5.1) 11/30/18 20:25 Chloride 108 mmol/L (98-107) H 11/30/18 20:25 Carbon Dioxide 27 mmol/L (21-32) 11/30/18 20:25 Anion Gap 8 MMOL/L (8-16) 11/30/18 20:25 BUN 7.6 mg/dL (7-18) 11/30/18 20:25 Creatinine 0.6 mg/dL (0.55-1.3) 11/30/18 20:25 Random Glucose 92 mg/dL (74-106) 11/30/18 20:25 Calcium 8.9 mg/dL (8.5-10.1) 11/30/18 20:25 Total Bilirubin 0.3 mg/dL (0.2-1) 11/30/18 20:25 AST 24 U/L (15-37) 11/30/18 20:25 ALT 26 U/L (13-61) 11/30/18 20:25 Alkaline Phosphatase 75 U/L (45-117) 11/30/18 20:25 Total Protein 7.3 g/dl (6.4-8.2) 11/30/18 20:25 Albumin 3.3 g/dl (3.4-5.0) L 11/30/18 20:25 ASSESSMENT/PLAN: The patient is a 28 year old female with past medical history significant for migraines for the past 3 months, which have worsened over the past 7 days with associated vomiting. She had a spontaneous followed by [facility] 6 days ago, prior to admission, after which she was placed on Cipro and Flagyl. After the , her migraines worsened. She also started taking Venlafaxine after the [facility], which is when her nausea and vomiting worsened. Furthermore, she was informed by the clinic that she had a UTI on the basis of positive urine cultures. The migraine begins around her eye and shifts towards the back of her head, is sudden in onset, last anywhere between a few hours to an entire day, described as throbbing in quality, aggravated by movement and light, and alleviated by lying still in a dark room. She also complains of associated blurring of vision, dizziness, left sided chest pain and tightness, palpitations , non-exertional dyspnea, which she reports occurs when she feels a panic attack coming. No associated fevers or chills, stomach pain, diarrhea, or cough. Head CT completed - no evidence of intracranial lesion or hemorrhage. eports having reactions to Imitrex (was given in ER with benadryl), fioricet does not help. Amitryptiline tried [place] 25mg by Dr. Villatoro who she sees but without benefit. Discussed trial of Propranolol 40mg and she was in agreement. 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 Should follow up as outpatient for further mgmt.
[2018-12-01 13:55] VITALS: BP 109/82; PULSE 76; TEMP 98.4
--- NOTE | 2018-12-01 14:07 | DS ---
Physical Exam: SUBJECTIVE: Patient seen and examined OBJECTIVE: Vital Signs Period Temp Pulse Resp BP Sys/Schneider Pulse Ox Last 24 Hr 97.5 F-98.4 F 66-98 16-18 104-109/58-82 98-100 PHYSICAL EXAM GENERAL: The patient is awake, alert, and fully oriented, in no acute distress. HEAD: Normal with no signs of trauma. EYES: PERRL, extraocular movements intact, sclera anicteric, conjunctiva clear. ENT: Ears normal, nares patent, oropharynx clear without exudates, moist mucous membranes. NECK: Trachea midline, full range of motion, supple. LUNGS: Breath sounds equal, clear to auscultation bilaterally, no wheezes, no crackles, no accessory muscle use. HEART: Regular rate and rhythm, S1, S2 without murmur, rub or gallop. ABDOMEN: Soft, nontender, nondistended, normoactive bowel sounds, no guarding, no rebound, no hepatosplenomegaly, no masses. EXTREMITIES: 2+ pulses, warm, well-perfused, no edema. NEUROLOGICAL: Cranial nerves II through XII grossly intact. Normal speech, gait not observed. PSYCH: Normal mood, normal affect. SKIN: Warm, dry, normal turgor, no rashes or lesions noted. LABS Laboratory Results - last 24 hr 11/30/18 11/30/18 11/30/18 20:25 20:25 20:25 WBC 6.4 RBC 3.72 Hgb 9.9 L Hct 29.3 L MCV 78.8 L MCH 26.6 MCHC 33.8 RDW 16.5 H Plt Count 238 MPV 8.7 Absolute Neuts (auto) 3.8 Neutrophils % 59.1 D Lymphocytes % 31.4 D Monocytes % 7.8 Eosinophils % 1.2 D Basophils % 0.5 Nucleated RBC % 0 PT with INR 13.20 H INR 1.12 H PTT (Actin FS) 29.2 Sodium 143 Potassium 3.7 Chloride 108 H Carbon Dioxide 27 Anion Gap 8 BUN 7.6 Creatinine 0.6 Est GFR (CKD-EPI)AfAm 145.80 Est GFR (CKD-EPI)NonAf 125.80 Random Glucose 92 Calcium 8.9 Magnesium 2.2 Total Bilirubin 0.3 AST 24 ALT 26 Alkaline Phosphatase 75 Total Protein 7.3 Albumin 3.3 L TSH Beta HCG, Quant 2211.2 Serum , Qual Blood Type Antibody Screen Antibody Identification Antigen Identification 11/30/18 11/30/18 12/01/18 20:25 20:25 08:30 WBC RBC Hgb Hct MCV MCH MCHC RDW Plt Count MPV Absolute Neuts (auto) Neutrophils % Lymphocytes % Monocytes % Eosinophils % Basophils % Nucleated RBC % PT with INR INR PTT (Actin FS) Sodium Potassium Chloride Carbon Dioxide Anion Gap BUN Creatinine Est GFR (CKD-EPI)AfAm Est GFR (CKD-EPI)NonAf Random Glucose Calcium Magnesium 2.9 H Total Bilirubin AST ALT Alkaline Phosphatase Total Protein Albumin TSH 1.13 Beta HCG, Quant Serum , Qual Positive Blood Type O POSITIVE Antibody Screen Positive Antibody Identification Anti d Antigen Identification No Result Required. HOSPITAL COURSE: Date of Admission:11/30/18 Date of Discharge: 12/01/18 Discharge Summary Reason For Visit: VOMITING/MISCARRIAGE 11/24/2018 Current Active Problems Anemia (Acute) History of dilation and curettage (Acute) Migraine (Acute) Vomiting (Acute) Condition: Stable - Instructions Diet, Activity, Other Instructions: Your blood work showed you are anemic. Follow up with Dr. Calhoun and your primary care doctor on this finding. Your lab work was otherwise normal. You have been prescribed Propranolol 40 mg daily for your migraines. A prescription has been sent to [facility] in [place]. Please call Dr. Villatoro's office in the morning to schedule an appointment to follow-up. Follow up with Dr. Calhoun within 3 days, your care is not complete until you follow up. Take Tylenol over the counter for your pain, take as advised on label. Drink lots of water throughout the day to stay hydrated. Eat at least 3 meals a day. Sleep at least 8 hours a night. Continue taking all medication you were previously prescribed. Return to the Emergency Department for increasing pain despite tylenol use, weakness, numbness, tingling, chest pain, shortness of breath, increasing dysuria, fever, vomiting, increasing vaginal discharge, or any other new, worsening or concerning symptoms. Referrals: Andrew Villatoro MD [Staff Physician] - Ana Blunt MD [Primary Care Provider] - Perfecto Calhoun MD [Staff Physician] - - Home Medications Comprehensive Discharge Medication List: Ambulatory Orders metroNIDAZOLE [Flagyl -] 500 mg PO BID #14 tablet 11/25/18 Ondansetron [Zofran *Odt*] 4 mg SL Q4H PRN #30 od.tablet 12/01/18 Propranolol HCl 40 mg PO DAILY #14 tablet 12/01/18
== END 2018-12-01 14:30 | disposition home or self-care (01) ==
LOC: JER 18:51
PROC: 3E0337Z Introduction of Electrolytic and Water Balance Substance into Peripheral Vein, Percutaneous Approach (ICD-10-PCS; principal; 2018-11-30)
PROC: 3E03329 Introduction of Other Anti-infective into Peripheral Vein, Percutaneous Approach (ICD-10-PCS; 2018-11-30)
PROC: 3E033NZ Introduction of Analgesics, Hypnotics, Sedatives into Peripheral Vein, Percutaneous Approach (ICD-10-PCS; 2018-11-30)
PROC: 3E033GC Introduction of Other Therapeutic Substance into Peripheral Vein, Percutaneous Approach (ICD-10-PCS; 2018-11-30)
DX: G43.909 Migraine, unspecified, not intractable, without status migrainosus (principal); D64.9 Anemia, unspecified; R11.2 Nausea with vomiting, unspecified; Z98.890 Other specified postprocedural states; K21.9 Gastro-esophageal reflux disease without esophagitis; Z88.0 Allergy status to penicillin; Z88.1 Allergy status to other antibiotic agents; Z88.6 Allergy status to analgesic agent; Z87.440 Personal history of urinary (tract) infections
CPT/HCPCS: 36415; 70450-TC; 80053; 83735; 84443; 84702; 84703; 85025; 85610; 85730; 86850; 86870; 86900; 86901; 86902; 99285-25; J0131; J7030